=== PATIENT | male | born 1940 | race Caucasian/White ===

== ENCOUNTER → 2016-09-03 | Outpatient (CLI) | payer OTHER ==
--- NOTE | 2016-09-03 17:41 | CT ---
CT Scan of the Chest (Without Contrast) - High-Resolution Clinical Indications: Evaluate pulmonary fibrosis. Technique: Multidetector helical CT was performed from the superior thoracic inlet to the diaphragm. No intravenous contrast was given. The radiologist manipulated images at the computer workstation. The patient was scanned in the prone and supine positions. The patient was scanned in inspiration and expiration per the high-resolution CT chest protocol. Dose reduction techniques were utilized. Comparison: June 13, 2016. Findings: Apical fibrotic changes are again present but the alveolar component of the upper lobar co nsolidation has resolved significantly. There are still some patchy anterior areas of interstitial t hickening in the left upper lobe. There is some mild posterior consolidative or atelectatic change. The patchy alveolar right middle lobe and bibasilar consolidation are resolving significantly. Basi lar traction bronchiectasis is mild overall. 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 Limited examination of the upper abdomen is unremarkable. The bones exhibit moderate degenerative changes. There is a multilevel fusion in the lumbar spine. The aorta and pulmonary vasculature are unremarkable. There is dense coronary artery calcification. The heart size is normal. Low densities in the left upper kidney are consistent with cysts. Impression: Significant interval improvement in the alveolar versus reticulonodular opacities. This may have been result of either infectious consolidation or diffuse patchy failure on a background of moderate to severe interstitial lung disease.
== END ==
LOC: CIMAGING 14:11
PROVIDERS: ATTEND Internal Medicine Cardiovascular Disease
DX: J84.10 Pulmonary fibrosis, unspecified (principal)
CPT/HCPCS: 71250-PO

== ENCOUNTER 2016-09-18 07:28 | Day surgery (SDC) | payer OTHER ==
[2016-09-18] MEDS ORDERED: NS 1,000 ML IV ONE (07:29)
[2016-09-18] MEDS ORDERED: FAMOTIDINE 20 MG TAB PO ONE (07:29)
[2016-09-18] MEDS ORDERED: diphenhydrAMINE 25 MG CAP PO ONE ×2 (07:29→08:12)
[2016-09-18] MEDS ORDERED: ASPIRIN EC 325 MG TAB PO ONE (07:29)
[2016-09-18] MEDS ORDERED: DIAZEPAM 5 MG TAB PO ONE (07:29)
--- NOTE | 2016-09-18 07:51 | CPEKG ---
Heart Rate: 91 RR Interval: 659 P-R Interval: 184 QRSD Interval: 84 QT Interval: 372 QTC Interval: 458 P [place]: 10 QRS [place]: -18 T Wave [place]: 50 EKG Severity - ABNORMAL ECG - EKG Impression: SINUS RHYTHM EKG Impression: LVH WITH SECONDARY REPOLARIZATION ABNORMALITY Electronically Signed By: Yovani Kovacs 19-Sep-2016 08:51:57
[2016-09-18 08:09] LABS: % IMMATURE GRANULYOCYTES 0.6 % (0.0-1.1); ABSOLUTE IMMATURE GRANULOCYTES 0.05 10^3/uL (0.00-0.10); ADD DIFF? NO; ADD MORPH? NO; ADD SCAN? NO; ATYPICAL LYMPHOCYTE FLAG 0 (0-99); FRAGMENT RBC FLAG 0 (0-99); HEMATOCRIT 35.9 % (40.0-51.0); HEMOGLOBIN 11.8 g/dL (13.7-17.5); LEFT SHIFT FLG 0 (0-99); LIPEMIA HEMOLYSIS FLAG 80 (0-99); MEAN CELL HEMOGLOBIN 31.6 pg (27.9-34.1); MEAN CELL HEMOGLOBIN CONCENTR. 32.9 g/dL (32.4-36.7); MEAN CELL VOLUME 96.2 fL (81.5-99.8); MEAN PLATELET VOLUME 9.4 fL (8.7-11.7); PLATELET CLUMPS FLAG 0 (0-99); PLATELET COUNT 348 10^3/uL (150-400); RED BLOOD CELL COUNT 3.73 10^6/uL (4.40-6.38); RED CELL DISTRIBUTION WIDTH 13.8 % (11.5-15.2)
[2016-09-18] MEDS ORDERED: FAMOTIDINE 20 MG TAB ONE (08:12)
[2016-09-18] MEDS ORDERED: IOPAMIDOL (ISOVUE-370) 150 ML BTL IV ONE (08:18)
[2016-09-18] MEDS ORDERED: fentaNYL 100 MCG/2 ML INJ ONE (08:18)
[2016-09-18] MEDS ORDERED: LIDOCAINE 1% 30 ML SDV ONE (08:18)
[2016-09-18] MEDS ORDERED: MIDAZOLAM 2 MG/2 ML VIAL ONE (08:18)
[2016-09-18] MEDS ORDERED: VERAPAMIL 5 MG/2 ML VIAL ONE (08:18)
[2016-09-18] MEDS ORDERED: HEPARIN 10,000 UNIT/10 ML MDV ONE (08:18)
[2016-09-18 08:20] LABS: INR 0.99 (0.83-1.16)
[2016-09-18 08:33] LABS: ANION GAP 10 mEq/L (8-16); CALCIUM 9.4 mg/dL (8.5-10.4); CARBON DIOXIDE 24 mEq/l (22-31); CHLORIDE 108 mEq/L (97-110); CHOLESTEROL 155 mg/dL (140-220); CHOLESTEROL/HDL RATIO 2.87 RATIO (1.00-4.97); CREATININE 1.5 mg/dL (0.7-1.3); GLOMERULAR FILTRATION RATE 46; GLUCOSE 81 mg/dL (70-100); HIGH DENSITY LIPOPROTEIN 54 mg/dL (40-65); LDL/HDL RATIO 1.39 RATIO (1.00-3.64); LOW DENSITY LIPOPROTEIN 75 mg/dL (80-100); MAGNESIUM 1.8 mg/dL (1.6-2.3); NON-HIGH DENSITY LIPOPROTEIN 101 mg/dL (90-129); POTASSIUM 4.1 mEq/L (3.5-5.2); SODIUM 142 mEq/L (134-144); TRIGLYCERIDE 130 mg/dL (40-150); VERY LOW DENSITY LIPOPROTEINS 26 mg/dL (8-25)
--- NOTE | 2016-09-18 13:04 | CPIP ---
[f rep st] INVASIVE CARDIAC PROCEDURE DATE OF PROCEDURE: 09/18/2016 PROCEDURES: 1. Coronary angiography. 2. Right heart catheterization. INDICATIONS: 1. Known coronary artery disease. 2. Dyspnea on exertion concerning for an anginal equivalent. 3. History of cardiomyopathy. ACCESS: Patient was prepped and draped in a sterile fashion. 1% lidocaine was used to anesthetize t he right inguinal region. A 6-Filipino introducer sheath was placed in the right common femoral artery via modified Seldinger technique. A 7-Filipino introducer sheath was placed selectively into the [facility] t common femoral vein via modified Seldinger technique. CORONARY ANGIOGRAPHY: A 6-Filipino JL4 was advanced to the left main coronary artery and images obtain ed. The left main coronary artery bifurcated into an LAD and circumflex coronary arteries. The left main coronary artery appeared normal. The left anterior descending coronary artery was diffusely di seased. In the proximal segment, there was a segmental 40% stenosis present. In the midsegment, the re was a segmental 50% stenosis present and in the distal vessel there was a segmental 40% stenosis p resent. The first diagonal artery was a moderate-sized vessel. The first diagonal artery had an ost ial 50-60% stenosis present. The second diagonal artery is a small vessel that had a long segmental 70% stenosis present. The circumflex coronary artery was nondominant. The circumflex coronary arter y had a discrete 20% stenosis in the proximal segment. The second OM artery had a proximal 30% steno sis present. The third OM artery had a segmental 30-40% stenosis present. 6-Filipino JR4 was advanced to the right coronary artery and images obtained. The right coronary artery had a mid segmental 50% stenosis present. RIGHT HEART CATHETERIZATION: Right heart catheter was advanced to the right atrium and pressure obta ined. The right atrial pressure was 5 mmHg. The catheter was then advanced in the right ventricle a nd pressure obtained. The right ventricular pressure was 30/2 mmHg. the catheter was then advanced in the pulmonary artery position and pressure obtained. The pulmonary artery pressure was 26/12 mmHg. The catheter was then advanced into the wedge position and pressure obtained. The pulmonary capilla ry wedge pressure was 8 mmHg. Cardiac output was 5.12, cardiac index 2.91. COMPLICATIONS: None. CONCLUSIONS: 1. Moderate coronary artery disease involving predominantly branch vessels. 2. Normal pulmonary artery pressure with a mean pulmonary artery pressure of 17 mmHg. 3. Normal pulmonary capillary wedge pressure at 8 mmHg. 4. When compared to angiogram December of 2015, branch vessel disease appears to be slightly worse with p otential of vasospastic type component. 5. Recommend medical management. /[id number]/MODL
[2016-09-18] MEDS ORDERED: ACETAMINOPHEN 325 MG TAB ONE (15:53)
--- NOTE | 2016-09-18 17:05 | ECHO ---
[id number] + + [address] : : [place] [address] : : [phone] + + Adult Echocardiographic Report + ------+ :Name: TRENA PHILLIPS HStudy Date: 09/18/2016 12:22 PM : : Hospital Admission Number: [id number] Locatio n: CVC: :: 1940 Gender: Male Height: 67 in : :Age: 76 yrs Race: WH Weight: 145 lb : :Reason For Study: Eval LV Fx : : BSA: 1.8 meters 2 : :History: Post Cath : + ------+ MMode/2D Measurements & Calculations IVSd: 1.0 cm LVIDd: 4.2 cm FS: 20.1 % Ao root diam: LVPWd: 0.91 cm LVIDs: 3.3 cm EDV(Teich): 3.9 cm 78.2 ml ACS: 1.8 cm ESV(Teich): 45.7 ml EF(Teich): 41.6 % LVLd ap4: 7.0 cm SV(MOD-sp4): EDV(MOD-sp4): 27.0 ml 66.0 ml LVLs ap4: 6.5 cm ESV(MOD-sp4): 39.0 ml EF(MOD-sp4): 40.9 % Normal Measurement Values: + + :LVIDd (3.5-5.7cm) IVSd (0.6-1.1cm) LVPWd (0.6-1.1cm) Aortic Root (2.0-3.7cm)Left Atrium (1.5-4.0cm): :LV Vol(d) (76-115ml) LV Vol(s) (29-48ml) Ejec Fraction (50-65%)PV Ander (0.6- 1.2m/s) TV Ander (0.4-1.0m/s) : :MV E Ander (0.8-1.0m/s)MV A Ander (0.3-1.0m/s)LVOT Ander (0.7-1.2m/s) Asc Ao Ander ( 0.9-1.8m/s) : + + Doppler Measurements & Calculations MV E max ander: AI max ander: LV V1 max: MR max ander: 51.3 cm/sec 304.1 cm/sec 74.0 cm/sec 320.3 cm/sec MV A max ander: AI max P.0 mmHg LV V1 max PG: MR max P.8 cm/sec AI dec slope: 2.2 mmHg 41.0 mmHg MV E/A: 0.57 110.5 cm/sec2 AI P1/2t: 805.7 msec PA V2 max: TR max ander: 86.9 cm/sec 243.0 cm/sec PA max PG: TR max P.6 mmHg 3.0 mmHg RAP systole: 5.0 mmHg RVSP(TR): 28.6 mmHg Left Ventricle The left ventricle is normal in size. There is mild concentric left ventricular hypertrophy. Ejection Fraction = 50%. There is Doppler evidence for diastolic dysfunction. Right Ventricle The right ventricle is normal in size and function. Atria The left atrium is mildly dilated. Right atrial size is normal. Mitral Valve The mitral valve is normal in structure and function. There is no evidence of mitral valve prolapse. There is no mitral valve stenosis. There is mild mitral regurgitation. Tricuspid Valve There is trace to mild tricuspid regurgitation. Right ventricular systolic pressure is 28mmHg. Aortic Valve The aortic valve is trileaflet. There is no aortic stenosis. Mild aortic regurgitation. Pulmonic Valve The pulmonic valve is normal in structure and function. There is no pulmonic valvular regurgitation. Great Vessels The aortic root is normal size. Pericardium/Pleural There is no pericardial effusion. Conclusion A complete two-dimensional transthoracic echocardiogram was performed (2D, M-mode, Doppler and color flow Doppler). There is mild concentric left ventricular hypertrophy. There is Doppler evidence for diastolic dysfunction. The right ventricle is normal in size and function. The left atrium is mildly dilated. The mitral valve is normal in structure and function. There is mild mitral regurgitation. There is trace to mild tricuspid regurgitation. Right ventricular systolic pressure is 28mmHg. The aortic valve is trileaflet. Mild aortic regurgitation. The pulmonic valve is normal in structure and function. There is no pericardial effusion. Ejection Fraction = 50%. Compared with 01/16/2016, LVEF may be slightly better. Final Reading Physician: Dr Margaret Aguiar electronically signed on 09/18/2016 05:04 PM Ordering Physician: Tono Klein Performed By: Clint Patton, GHAZALACS
== END 2016-09-18 15:57 | disposition home or self-care (01) ==
LOC: FCATH 07:28
PROVIDERS: ATTEND Internal Medicine Cardiovascular Disease
PROC: 4A023N6 Measurement of Cardiac Sampling and Pressure, Right Heart, Percutaneous Approach (ICD-10-PCS; principal; 2016-09-18)
PROC: B2111ZZ Fluoroscopy of Multiple Coronary Arteries using Low Osmolar Contrast (ICD-10-PCS; principal; 2016-09-18)
DX: I25.10 Atherosclerotic heart disease of native coronary artery without angina pectoris (principal); R06.00 Dyspnea, unspecified; I50.9 Heart failure, unspecified; J98.4 Other disorders of lung; N18.9 Chronic kidney disease, unspecified
CPT/HCPCS: J1644; J2250; J3010; Q9967

== ENCOUNTER → 2017-01-15 | Outpatient (CLI) | payer OTHER | LOC: FIMAGING 10:45 | PROVIDERS: ATTEND Physician Assistant | DX: Z47.89 Encounter for other orthopedic aftercare (principal); Z98.1 Arthrodesis status ==

== ENCOUNTER → 2017-03-07 | Outpatient (CLI) | payer OTHER | LOC: BHFA 14:45 | PROVIDERS: ATTEND Internal Medicine Cardiovascular Disease | DX: I25.10 Atherosclerotic heart disease of native coronary artery without angina pectoris (principal); I48.91 Unspecified atrial fibrillation; R42 Dizziness and giddiness; N18.9 Chronic kidney disease, unspecified ==

== ENCOUNTER 2017-06-11 19:30 | Inpatient (IN) | payer OTHER ==
--- NOTE | 2017-06-11 19:40 | EDPHY ---
H & P Stated Complaint: AFIB/CP 11/02, 'DONT FEEL WELL', SAW DOCTOR TODAY, WAS TO COME IN EARLIER HPI/ROS: CHIEF COMPLAINT: Chest pain HISTORY OF PRESENT ILLNESS: The patient is an anticoagulated 77 y/o male with a cardiac disease history arriving with his complaining of left-sided chest pain today and fatigue for the last week. His medical history includes atrial fibrillation with RVR, CAD, hypertension, hyperlipidemia, and chronic kidney disease. He is not on rate-controlling medication for his atrial fibrillation currently. He's felt generally fatigued and weak over the last week, particularly when walking. He saw his PCP today and was directed to take extra metoprolol and go to the ED. The patient took 25mg metoprolol this morning and again this evening and then decided to come into the ED. He denies abdominal pain, nausea, vomiting, diaphoresis, dyspnea, fever. He's had associated loss of appetite and reports losing 5-8lbs over the last 2 weeks. He had a cardiac catheterization performed in August of 2016. REVIEW OF SYSTEMS: A ten point review of systems was performed and is negative with the exception of the items mentioned in the HPI. Past medical history: Atrial fibrillation with RVR - Eliquis, cardiomyopathy, CAD, hypertension, hyperlipidemia, anxiety, chronic kidney disease with baseline creatinine of 1.4, spinal stenosis and degenerative disc disease, GERD , gastric ulcer Past surgical history: neck fusion Family history: Father had TX age 54. Social history: at bedside. Nonsmoker. Snow Removal/Plowing: Dr. Armstrong. PCP: Dr. Ariza Prior medical records reviewed including admission 06/10/16 for dyspnea. General Appearance: Alert. Vital signs reviewed. Heart rate 125, blood pressure 129/84. Eyes: Pupils equal and round, no conjunctival injection, no discharge. Anicteric. ENT, Mouth: Mucous membranes are moist, no oropharyngeal erythema or edema. Neck: No lymphadenopathy, supple. No JVD. Respiratory: Lungs are clear to auscultation; no wheezes, rales, or rhonchi. Cardiovascular: Tachycardic, irregularly irregular rate and rhythm; no murmur, rub, or gallop. Gastrointestinal: Abdomen is soft and nontender, no masses or organomegaly, bowel sounds normal. Skin: Warm and dry, no rashes on exposed skin, normal color. Back: Nontender to palpation over the thoracolumbar spine. No CVAT. Extremities: No lower extremity edema, no calf tenderness or swelling. Neurological: Alert and oriented. Moving all four extremities easily and equally. Psychiatric: Normal affect. - Personal History Current Tetanus/Diphtheria Vaccine: Yes Tetanus Vaccine Date: 5 YEARS AGO - Medical/Surgical History Hx Asthma: No Hx Chronic Respiratory Disease: No Hx Diabetes: No Hx Cardiac Disease: Yes Hx Renal Disease: No Hx Cirrhosis: No Hx Alcoholism: No Hx HIV/AIDS: No Hx Splenectomy or Spleen Trauma: No Other PMH: htn, high cholesterol, rotator cuff [id number] cannot raise r arm above head. r knee replacement, ANXIETY, 2 neck surgeries, 2 back surgeries - Social History Smoking Status: Former smoker Constitutional: Initial Vital Signs Heart Rate 125 H 06/11/17 19:35 Respiratory Rate 18 06/11/17 19:35 Blood Pressure 129/84 H 06/11/17 19:35 O2 Sat (%) 96 06/11/17 19:35 O2 Delivery Mode Nasal Cannula O2 (L/minute) 3 Allergies/Adverse Reactions: amiodarone Allergy (Severe, Verified 06/12/17 07:27) Swelling/neck,face,throat hydrocodone bitartrate [From [facility]] Allergy (Verified 06/11/17 19:48) GETS AGITATED oxycodone HCl [From Percocet] Allergy (Verified 06/11/17 19:48) GETS AGITATED Home Medications: Medication Instructions Recorded Multivitamins [Multivitamin (*)] 1 each PO HS 06/13/16 Atorvastatin Calcium [Lipitor 40 40 mg PO DAILY #0 tab 06/15/16 mg (*)] Acetaminophen [Tylenol 325mg (*)] 650 mg PO DAILY PRN 09/18/16 Cholecalciferol Vit D3 [Vitamin D3 2,000 units PO DAILY 09/18/16 2000 units tab (OTC)] Omeprazole [Prilosec 20 mg] 40 mg PO DAILY 09/18/16 Apixaban [Eliquis] 2.5 mg PO BID 06/11/17 Cyanocobalamin [Vitamin B12 (*)] 1,000 mcg PO DAILY 06/11/17 LORazepam [Ativan (*)] 0.5 mg PO Q8H PRN 06/11/17 Zolpidem Tartrate [Ambien 5MG (*)] 5 mg PO HS PRN 06/11/17 Benzonatate [Tessalon Pearles] 100 - 200 mg PO TID PRN #40 cap 06/15/17 Carvedilol [Coreg (*)] 9.375 mg PO BIDMEAL #90 tab 06/15/17 Furosemide [Lasix 40 MG (*)] 40 mg PO DAILY #30 tab 06/15/17 Potassium Cl [Klor-Con 10 meq (RX)] 10 meq PO DAILY #30 tab 06/15/17 Ramipril [Altace 5mg (*)] 5 mg PO DAILY #30 cap 06/15/17 predniSONE 20 mg PO DAILY #4 tablet 06/15/17 Medical Decision Making - Diagnostics EKG Interpretation: 12 lead EKG is interpreted in Trace master View by emergency department physician. EKG shows atrial fibrillation with a rate of 117. Imaging: I viewed and interpreted images myself ED Course/Re-evaluation: This is an anticoagulated 77 y/o male with a history of atrial fibrillation and CAD who presents with a 1-week history of fatigue and a 1-day history of chest pain. He was evaluated by his PCP this morning and found to be in afib. His PCP directed him to take metoprolol and go to the ED, though the patient waited until this evening to come in. He has an irregularly irregular heart rate on exam, but otherwise is well-appearing. Plan for IV, labs, EKG, and chest x-ray. Re-evaluated at 8:40 p.m.. He has received 5 mg of metoprolol IV. His heart rate is now around 100. He is not experiencing chest pain. He continues to be in atrial fibrillation. Chest x-ray shows cardiomegaly. Slight elevation of his troponin at 0.039. I am recommending hospitalization for continued rate control and cycling of troponins. 2123: Spoke with hospitalist service. Dr. Ortega accepts admission. Differential Diagnosis: Chest pain including but not limited to myocardial ischemia, pulmonary embolus, chest wall pain, pleural inflammation and pulmonary infectious causes. - Data Points Laboratory Results: Laboratory Results 06/11/17 19:50 06/12/17 05:47 Medications Given: Discontinued Medications Acetaminophen (Tylenol) 650 mg PO DAILY PRN PRN Reason: Pain, Mild/Fever, Can Take PO Stop: 12/08/17 21:57 Last Admin: 06/13/17 08:35 Dose: 650 mg Apixaban (Eliquis) 2.5 mg PO BID [facility] Stop: 12/09/17 00:26 Last Admin: 06/12/17 09:05 Dose: Not Given Apixaban (Eliquis) 5 mg PO BID YANNICK Stop: 12/10/17 09:44 Last Admin: 06/15/17 09:06 Dose: 5 mg Atorvastatin Calcium (Lipitor) 40 mg PO DAILY YANNICK Stop: 12/09/17 08:59 Last Admin: 06/15/17 09:08 Dose: 40 mg Bacitracin (Bacitracin 1000 Ml Irrigation) 50,000 units IRR ONCALL ONE Stop: 06/12/17 10:08 Last Admin: 06/12/17 19:08 Dose: Not Given Benzocaine (Hurricaine [place]) 1 each MM ONCALL ONE Stop: 06/12/17 10:15 Last Admin: 06/12/17 19:08 Dose: Not Given Benzonatate (Tessalon Pearles) 100 mg PO TID PRN PRN Reason: Cough, Mild Stop: 12/12/17 00:11 Last Admin: 06/15/17 00:45 Dose: 100 mg Carvedilol (Coreg) 6.25 mg PO BIDMEAL [facility] Stop: 12/10/17 07:59 Last Admin: 06/15/17 09:45 Dose: Not Given Carvedilol (Coreg) 9.375 mg PO BIDMEAL [facility] Stop: 12/12/17 08:29 Last Admin: 06/15/17 09:08 Dose: 9.375 mg Cholecalciferol (Vitamin D) 2,000 units PO DAILY YANNICK Stop: 12/09/17 08:59 Last Admin: 06/15/17 09:08 Dose: 2,000 units Diazepam (Valium) 5 mg PO ONCALL ONE Stop: 06/12/17 10:08 Last Admin: 06/12/17 19:08 Dose: Not Given Diphenhydramine HCl (Benadryl) 25 mg PO ONCALL ONE Stop: 06/12/17 10:08 Last Admin: 06/12/17 19:08 Dose: Not Given Furosemide (Lasix Injection) 20 mg IVP ONCE ONE Stop: 06/12/17 21:01 Last Admin: 06/12/17 21:14 Dose: 20 mg Furosemide (Lasix Injection) 20 mg IVP ONCE ONE Stop: 06/14/17 09:40 Last Admin: 06/14/17 10:08 Dose: 20 mg Furosemide (Lasix) 40 mg PO DAILY YANNICK Stop: 12/12/17 08:59 Last Admin: 06/15/17 09:07 Dose: 40 mg Guaifenesin (Robitussin Oral Liquid 200mg/10ml) 200 mg PO Q4HRS PRN PRN Reason: Cough, Mild Stop: 12/12/17 00:11 Last Admin: 06/15/17 00:45 Dose: 200 mg Hydralazine HCl (Apresoline) 10 mg IVP Q2HRS PRN PRN Reason: SBP Greater Than Stop: 12/10/17 02:15 Last Admin: 06/13/17 05:04 Dose: 10 mg Sodium Chloride (Ns) 1,000 mls @ 75 mls/hr IV CONT YANNICK Stop: 12/09/17 06:44 Last Admin: 06/12/17 07:21 Dose: 1,000 mls Sodium Chloride (Ns) 500 mls @ 1,500 mls/hr IV ONCE ONE Stop: 06/12/17 06:58 Last Admin: 06/12/17 06:45 Dose: 500 mls Sodium Chloride (Ns) 1,000 mls @ 0 mls/hr IV ONCALL ONE PRN Reason: As Directed Stop: 06/12/17 10:08 Last Admin: 06/12/17 19:08 Dose: Not Given Cefazolin Sodium 2 gm/ (Dextrose) 100 mls @ 200 mls/hr IV ONCALL ONE Stop: 06/12/17 10:59 Last Admin: 06/12/17 19:08 Dose: Not Given Magnesium Sulfate (Magnesium Sulf 2 Gm (Premix)) 50 mls @ 50 mls/hr IV ONCE ONE Stop: 06/15/17 11:19 Last Admin: 06/15/17 11:36 Dose: 50 mls Lorazepam (Ativan) 0.5 mg PO Q8H PRN PRN Reason: Anxiety Stop: 12/08/17 21:57 Last Admin: 06/12/17 20:50 Dose: 0.5 mg Metoprolol Tartrate (Lopressor Injection) 5 mg IVP EDNOW ONE Stop: 06/11/17 20:11 Last Admin: 06/11/17 20:25 Dose: 5 mg Metoprolol Tartrate (Lopressor) 50 mg PO BID YANNICK Stop: 12/08/17 21:59 Last Admin: 06/12/17 00:14 Dose: 50 mg Metoprolol Tartrate (Lopressor Injection) 5 mg IVP ONCE ONE Stop: 06/11/17 22:53 Last Admin: 06/11/17 22:57 Dose: 5 mg Multivitamins (Tab-A-Imelda) 1 each PO HS YANNICK Stop: 12/09/17 20:59 Last Admin: 06/14/17 21:35 Dose: 1 each Pantoprazole Sodium (Protonix) 40 mg PO DAILY YANNICK Stop: 12/09/17 08:59 Last Admin: 06/15/17 09:08 Dose: 40 mg Potassium Chloride (Klor-Con) 10 meq PO ONCE ONE Stop: 06/14/17 09:41 Last Admin: 06/14/17 10:07 Dose: 10 meq Potassium Chloride (Klor-Con) 10 meq PO DAILY YANNICK Stop: 12/12/17 08:59 Last Admin: 06/15/17 09:07 Dose: 10 meq Prednisone (Prednisone) 20 mg PO ONCE ONE Stop: 06/15/17 13:14 Last Admin: 06/15/17 15:47 Dose: Not Given Ramipril (Altace) 2.5 mg PO DAILY YANNICK Stop: 12/10/17 08:59 Last Admin: 06/14/17 08:14 Dose: 2.5 mg Ramipril (Altace) 5 mg PO DAILY YANNICK Stop: 12/11/17 08:59 Last Admin: 06/14/17 10:29 Dose: Not Given Ramipril (Altace) 2.5 mg PO ONCE ONE Stop: 06/14/17 09:46 Last Admin: 06/14/17 10:07 Dose: 2.5 mg Ramipril (Altace) 5 mg PO DAILY YANNICK Stop: 12/12/17 08:59 Last Admin: 06/15/17 09:06 Dose: 5 mg Vitamin B Complex (Vitamin B12) 1,000 mcg PO DAILY YANNICK Stop: 12/09/17 08:59 Last Admin: 06/15/17 09:07 Dose: 1,000 mcg Zolpidem Tartrate (Ambien) 5 mg PO HS PRN PRN Reason: Sleep/Insomnia Stop: 12/08/17 21:57 Last Admin: 06/13/17 21:48 Dose: 5 mg Departure - Departure Disposition: [facility] Inpatient Acute Clinical Impression: Elevated troponin Atrial fibrillation Qualifiers: Atrial fibrillation type: paroxysmal Qualified Code(s): I48.0 - Paroxysmal atrial fibrillation Fatigue Qualifiers: Fatigue type: other Qualified Code(s): R53.83 - Other fatigue Condition: Fair Report Scribed for: Leonie Santana Report Scribed by: Radha Soni Date of Report: 06/11/17 Time of Report: 19:49 Physician Review and Approval Statement: 06/11/17 19:40 Portions of this note were transcribed by the vp medical. I, Dr. Leonie Santana, personally performed the history, physical exam, and medical decision- making; and confirmed the accuracy of the information in the transcribed note.
--- NOTE | 2017-06-11 19:52 | CPEKG ---
Heart Rate: 117 RR Interval: 513 QRSD Interval: 78 QT Interval: 328 QTC Interval: 458 QRS [place]: -5 T Wave [place]: 96 EKG Severity - ABNORMAL ECG - EKG Impression: ATRIAL FIBRILLATION, V-RATE 68-150 EKG Impression: BORDERLINE T ABNORMALITIES, LATERAL LEADS Electronically Signed By: Leonie Santana 11-Jun-2017 23:03:11
[2017-06-11] MEDS ORDERED: METOPROLOL TARTRATE 5 MG/5 ML INJ IVP ONE ×2 (20:10→22:52)
[2017-06-11 20:13] LABS: % IMMATURE GRANULYOCYTES 0.2 % (0.0-1.1); ABSOLUTE IMMATURE GRANULOCYTES 0.01 10^3/uL (0.00-0.10); ADD DIFF? NO; ADD MORPH? NO; ADD SCAN? NO; ATYPICAL LYMPHOCYTE FLAG 10 (0-99); FRAGMENT RBC FLAG 0 (0-99); HEMATOCRIT 40.9 % (40.0-51.0); HEMOGLOBIN 14.1 g/dL (13.7-17.5); LEFT SHIFT FLG 0 (0-99); LIPEMIA HEMOLYSIS FLAG 90 (0-99); MEAN CELL HEMOGLOBIN 33.9 pg (27.9-34.1); MEAN CELL HEMOGLOBIN CONCENTR. 34.5 g/dL (32.4-36.7); MEAN CELL VOLUME 98.3 fL (81.5-99.8); MEAN PLATELET VOLUME 10.5 fL (8.7-11.7); PLATELET CLUMPS FLAG 20 (0-99); PLATELET COUNT 250 10^3/uL (150-400); RED BLOOD CELL COUNT 4.16 10^6/uL (4.40-6.38); RED CELL DISTRIBUTION WIDTH 13.5 % (11.5-15.2)
[2017-06-11 20:35] LABS: ANION GAP 12 mEq/L (8-16); CALCIUM 9.8 mg/dL (8.5-10.4); CARBON DIOXIDE 20 mEq/l (22-31); CHLORIDE 108 mEq/L (97-110); CREATININE 1.8 mg/dL (0.7-1.3); GLOMERULAR FILTRATION RATE 37; GLUCOSE 106 mg/dL (70-100); SODIUM 140 mEq/L (134-144)
[2017-06-11 20:47] LABS: TROPONIN I 0.039 ng/mL (0.000-0.034)
[2017-06-11] MEDS ORDERED: METOPROLOL TARTRATE 50 MG TAB PO SCH (22:00)
--- NOTE | 2017-06-11 22:22 | GHP ---
[f rep st] HISTORY AND PHYSICAL DATE OF ADMISSION: 06/11/2017 CHIEF COMPLAINT: Chest pain and tachycardia. HISTORY OF PRESENT ILLNESS: This is a 77-year-old male with a history of chronic systolic congestive heart failure [facility] class 3, coronary artery disease, and persistent atrial fibrillation wh o presents to the emergency department with off and on chest pain for the past 1-1/2 weeks. The amilcar ent saw his primary care provider, Dr. Ariza this morning where his heart rate was 140 and he was instructed to go to the emergency department for further evaluation. The patient tells me that he h as been having chest pain off and on. The last episode was described as a 7/10 chest pressure at 8:0 0 this morning that lasted for 3 for minutes and self-resolved. He had a 2nd episode of less severe chest pain this afternoon. He says he has been compliant with his home medications. PAST MEDICAL HISTORY: 1. Coronary artery disease. Most recent cardiac catheterization was on September 18, 2016, where he w as found to have moderate coronary artery disease involving predominantly the branch vessels. No int ervention was recommended at that time, other than medical management. 2. 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 3. Persistent atrial fibrillation. 4. Stage III chronic kidney disease. 5. Hypertension. 6. Hyperlipidemia. 7. Anxiety. 8. Spinal stenosis. 9. Gastroesophageal reflux disease. 10. Gastric ulcer. 11. Cardiomyopathy with ejection fraction of 40% in December of 2015. Most recent echocardiogram done in August of 2016 with an ejection fraction of 50%. PAST SURGICAL HISTORY: Cervical fusion C3-C4, right knee replacement in 2010, lumbar spinal fusion L 3 through L5, right rotator cuff repair x2, tonsil and adenoidectomy. HOME MEDICATIONS: Reviewed. Refer to [employer] for details. ALLERGIES: Oxycodone, hydrocodone, ? amiodarone given hospitalization for amiodarone toxicity, [facility] I did not confirm this with the patient. SOCIAL HISTORY: Is a former smoker. He is . He denies illicit drug use. FAMILY HISTORY: Reviewed and noncontributory. REVIEW OF SYSTEMS: Comprehensive 10-point review of systems was done and is negative, except for as mentioned in the HPI and below. GI: The patient denies any nausea or vomiting. He denies any heart burn. He has been having some abdominal cramping over the past few days which has been associated wi th decreased appetite. PHYSICAL EXAM: VITAL SIGNS: Blood pressure 132/110, heart rate 104, respiratory rate 18, O2 saturat ion 94% on room air. Temperature afebrile. GENERAL: No acute distress. HEAD: Normocephalic, atra umatic. EYES: PERRLA. Sclerae anicteric. MOUTH: Moist mucous membranes. NECK: Supple. No lymp hadenopathy. CARDIOVASCULAR: Tachycardic, irregularly irregular. No JVD. No lower extremity edema . PULMONARY: Lungs are clear. No wheezes, rales, or rhonchi. ABDOMEN: Soft, nontender, nondisten ded. No guarding or rebound tenderness. Normoactive bowel sounds. EXTREMITIES: No clubbing or cya nosis. NEURO: Cranial nerves 2-12 grossly intact. No focal motor or sensory deficits. SKIN: Merle r no rashes. DIAGNOSTICS: Chest x-ray, which I visualized and personally interpreted, shows does mild cardiomegal y but no signs of acute congestive heart failure. EKG, which I visualized and personally interpreted , shows atrial fibrillation. Rate 117 beats per minute, with no acute ischemic changes. WBC is 5.8, hemoglobin 14.1, hematocrit 40.9, platelets 250. Sodium 140, potassium 5, chloride 108, CO2 20, BUN 26, creatinine 1.8, glucose 106, troponin indeterminate at 0.039. ASSESSMENT AND PLAN: This is a 77-year-old male with known coronary artery disease, presenting with 1. Chest pain and indeterminate troponin. Doubt acute coronary syndrome however the patient is at r isk. Plan: The patient will be placed on observation where we will cycle his troponins and consult Cardiology. Once again, the patient did have a cardiac cath in August of 2016. 2. Atrial fibrillation with poor rate control, likely contributing the patient's symptoms. Plan: We will increase the patient's metoprolol from 25 mg twice daily to 50 mg twice daily. Eliquis will be continued. If his heart rate continues to be above 100, we will consider adding a 2nd agent such as diltiazem. We will also check a TSH. 3. Chronic kidney disease. Stable. Plan: Avoid nephrotoxins and monitor. CODE STATUS: The patient requests to be full code status. /[id number]/MODL
[2017-06-11 22:53] LABS: MAGNESIUM 1.7 mg/dL (1.6-2.3)
[2017-06-11] MEDS ORDERED: METOPROLOL TARTRATE 5 MG/5 ML INJ ONE (22:56)
[2017-06-12] MEDS: ZOLPIDEM TARTRATE 5 MG TAB PO PRN (00:14)
[2017-06-12] MEDS: APIXABAN 2.5 MG TAB PO SCH ×2 (00:47→09:05)
[2017-06-12] MEDS: LORazepam 0.5 MG TAB PO PRN ×3 (04:10→20:50)
[2017-06-12 06:22] LABS: TROPONIN I 0.023 ng/mL (0.000-0.034)
[2017-06-12] MEDS ORDERED: NS 500 ML IV ONE ×2 (06:38→06:39)
--- NOTE | 2017-06-12 06:38 | HOSPPROG ---
Hospitalist Progress Note Assessment/Plan: Hospitalist Night Float Note Arrived to bedside after Noni Courtney called at patient room. RN was at bedside when patient c/o lightheadedness and subsequent syncopal episode while laying in bed. Patient was noted to be pulseless and unresponsive. Telemetry notes a 10 second pause with surrounding 2-3 second pauses. Patient had spontaneous return or pulses and consciousness. Patient admitted with c/o chest pain and afib RVR HR 140s. Patient was continued on metoprolol with increased dosage from 25mg bid to 50mg bid. At time of interview patient continued to feel a little lightheaded and uneasy with chest tightness with inspiration. VS reviewed. BP noted to be elevated with HR 120s. Gen - NAD. patient lays in bed. alert and interactive but pale and fatigued appearing. CV - tachy, slightly distant heart sounds. no murmur. Resp - CTA-B. unlabored breathing. GI - soft abdomen. nondistended. NTTP. Ext - no c/c/e. Neuro - nonfocal. moves all extremities. Psych - pt expressing concern but not anxious. pleasant and appropriate. AAOx3. Labs and tele reviewed. Plan - Pauses - holding beta doug. no additional anti-arrhythmics after discussion with cardiology. permissive tachycardia at this time. - atrial fib rvr - holding tx for rate control. pt on eliquis already. - diastolic and systolic chf chronic and compensated - monitor on tele. previous echo showed improvement in LVEF 40% to 50%. - benign essential HTN - holding antihypertensives at this time pending cardiology recommendations. - HLD - cont statin - CKD stage 3 - stable, avoid nephrotoxine. - anxiety -ativan prn - gerd - on protonix. 35 minutes critical care time at bedside and in discussion with patient and cardiology. Objective: Vital Signs Temp Pulse Resp BP Pulse Ox 36.7 C 127 H 18 142/109 H 92 06/12/17 04:00 06/12/17 04:00 06/12/17 04:00 06/12/17 04:00 06/12/17 04:00 06/11/17 06/12/17 06/13/17 05:59 05:59 05:59 Intake Total 320 Output Total 200 Balance 120 ICD10 Worksheet Patient Problems: Problems Problem Status Onset Atrial fibrillation Acute Elevated troponin Acute Fatigue Acute Chest pain Acute Hypoxia Acute Pulmonary infiltrate present on computed tomography Acute
[2017-06-12] MEDS ORDERED: NS 1,000 ML IV SCH (06:45)
[2017-06-12 07:34] LABS: ANION GAP 14 mEq/L (8-16); CALCIUM 9.6 mg/dL (8.5-10.4); CARBON DIOXIDE 19 mEq/l (22-31); CHLORIDE 109 mEq/L (97-110); CREATININE 1.7 mg/dL (0.7-1.3); GLOMERULAR FILTRATION RATE 39; GLUCOSE 86 mg/dL (70-100); POTASSIUM 4.8 mEq/L (3.5-5.2); SODIUM 142 mEq/L (134-144)
--- NOTE | 2017-06-12 08:35 | HOSPPROG ---
Hospitalist Progress Note Assessment/Plan: #Sinus pause: received 100mg oral BB, plus 10mg IV. Cardiology to place pacemaker today #Permanent atrial fib: increase to 5mg BID, cardioversion planned #CAD: moderate disease on cath 09/11. Lexiscan when more clinically stable. Statin #Cardiomyopathy: likely to due to a fib. Will resume BB once pacer in. Restart ACEI when clinically stable #DVT ppx: Eliquis #Disp: warrants inpatient admission with sinus pause requiring pacer, cardioversion and stress testing. Critical care time spent: 45 min reviewing records/medications, evaluating pt and d/w Cardiology Subjective: nauseated, dizziness and chest pressure Objective: Vital Signs Temp Pulse Resp BP Pulse Ox 36.3 C 118 H 26 H 146/110 H 96 06/12/17 07:40 06/12/17 07:40 06/12/17 07:40 06/12/17 07:40 06/12/17 07:40 Laboratory Results 06/12/17 05:47 06/11/17 06/12/17 06/13/17 05:59 05:59 05:59 Intake Total 320 Output Total 200 Balance 120 - Physical Exam Constitutional: uncomfortable Eyes: PERRL Ears, Nose, Mouth, Throat: moist mucous membranes Cardiovascular: irregularly irregular, tachycardia Respiratory: no respiratory distress Gastrointestinal: normoactive bowel sounds Genitourinary: no bladder fullness Skin: warm Musculoskeletal: full muscle strength Neurologic: AAOx3, CN II-XII Intact Psychiatric: flat affect ICD10 Worksheet Patient Problems: Problems Problem Status Onset Atrial fibrillation Acute Chest pain Acute Hypoxia Acute Pulmonary infiltrate present on computed tomography Acute Fatigue Acute Elevated troponin Acute
[2017-06-12] MEDS ORDERED: RAMIPRIL 2.5 MG CAP PO SCH (09:00)
[2017-06-12] MEDS ORDERED: APIXABAN 2.5 MG TAB PO SCH (09:00)
[2017-06-12] MEDS: ATORVASTATIN CALCIUM 40 MG TAB PO SCH (09:10)
[2017-06-12] MEDS: CYANO/VITAMIN B12 1000 MCG TAB PO SCH (09:10)
[2017-06-12] MEDS: CHOLECALCIFEROL VIT D3 2,000 UNITS TAB/CAP PO SCH (09:10)
[2017-06-12] MEDS: PANTOPRAZOLE SODIUM 40 MG TAB PO SCH (09:11)
[2017-06-12] MEDS ORDERED: BACITRACIN IRRIGATION/NS 50,000 UNITS/1,000 ML BTL IRR ONE (10:07)
[2017-06-12] MEDS ORDERED: NS 1,000 ML IV ONE (10:07)
[2017-06-12] MEDS ORDERED: diphenhydrAMINE 25 MG CAP PO ONE (10:07)
[2017-06-12] MEDS ORDERED: DIAZEPAM 5 MG TAB PO ONE (10:07)
[2017-06-12] MEDS ORDERED: ceFAZolin 2 GM/DEXTROSE 100 ML IV ONE (10:07)
[2017-06-12] MEDS ORDERED: BENZOCAINE UNIT DOSE SPRAY HURRICAINE MM ONE (10:14)
[2017-06-12] MEDS ORDERED: ceFAZolin 2 GM in D5W 100 ML IV ONE (10:30)
[2017-06-12 12:06] LABS: INR 1.47 (0.83-1.16); PROTIME(PATIENT) 17.8 SEC (12.0-15.0)
--- NOTE | 2017-06-12 13:45 | GCON ---
[f rep st] CONSULTATION CARDIOLOGY CONSULTATION INDICATION FOR CARDIOLOGY CONSULTATION: Atrial fibrillation with rapid ventricular response, 12 second asystole pause. BRIEF HISTORY OF PRESENT ILLNESS: The patient is a 77-year-old male, who is known to our practice, he has significant past history that includes coronary artery disease, moderate multi-vessel disease based off cardiac catheterization September 18, 2016, paroxysmal atrial fibrillation, for which he had been on amiodarone, with questionable pulmonary fibrosis secondary to amiodarone, which had improved with discontinuation, chronic renal insufficiency with baseline creatinine between 1.7 and 1.8, hyperlipidemia, hypertension. Patient reporting about 2 weeks ago, of feeling heaviness, fatigue in his legs, finding that he is having less stamina, and decreased fatigue. He does report occasional episode of lightheadedness with positional changes, but no syncopal events. Reporting also occasional spontaneous episode of midsternal chest pressure, coming on once or twice a day, lasting for approximately 10-15 minutes , and dissipating. Denying any associated symptoms of shortness of breath, nausea, or diaphoresis. He also reports ongoing episodes of nausea, which he has reported poor appetite over the last 2 weeks, and causing a mild weight loss. Due to these symptoms, he felt that it would be important for him to be further evaluated, seeing Dr. Ariza, his PCP, yesterday. Upon examination, it was found that his heart rate was fairly significantly fast, he was found to be in atrial fibrillation. With his symptoms, Dr. Ariza recommended that he go to the emergency department for further evaluations. Dr. Ariza also prescribed him to start on metoprolol tartrate, which patient reports he had taken 25 mg yesterday morning. He waxed and waned deciding if he actually really wanted to go to the emergency department for further evaluation, feeling that his symptoms were not significantly worse, but finally decided to go in, and he was seen around 7:30 last night. Upon arrival, electrocardiogram was done, which showed atrial fibrillation with RVR with rates between 120-140, nonspecific T-wave abnormalities. Chest x-ray was done that showed mild cardiomegaly, but no acute cardiopulmonary process. Initial laboratory studies drawn did note mild elevated troponin of 0.039. Due to his elevated rate, emergency department did give the patient 2 doses of IV metoprolol tartrate, for a total of 10 mg. With no significant decrease in heart rate, he was given another dose of metoprolol tartrate orally of 50 mg. He was transferred up to the telemetry unit. The patient reported no further episodes of chest pain, but ongoing fatigue and weakness on admission. Since that night, once arrival in the PCU, he did have cycled troponins post Emergency Department, which were all negative. Unfortunately, at 5:25 a.m., he did have a run of 12 seconds asystole on monitor, reporting that he did pass out briefly, though awoke. At that point, he was transferred to the intensive care unit. His metoprolol tartrate had been discontinued. Since being in ICU, he has remained in atrial fibrillation with RVR. At the time of my examination, he continues to report mild fatigue, but reports no further episodes of chest pressure; he does report lightheadedness when he sits up quickly. He reports no recent fevers, chills or night sweats. Reports no orthopnea, PND, edema, near-syncope, or syncopal events prior to this hospitalization. Denies any symptoms suggestive of TIA or CVA. Reports no bleeding issues, he is currently on Eliquis for anticoagulation. PAST MEDICAL HISTORY: 1. Coronary artery disease, most recent cardiac catheterization was in September 18, 2016, in which it was found that he had moderate CAD. But, nothing flow limiting or that could be intervened on. 2. Paroxysmal atrial fibrillation, with past history of amiodarone toxicity. 3. 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 4. Chronic renal insufficiency with baseline creatinine around 1.8. 5. Hypertension. 6. Hyperlipidemia. 7. Spinal stenosis. 8. Gastroesophageal reflux disease. 9. Gastric ulcers. 10. Prostate cancer. 11. Past history of cardiomyopathy with ejection fraction of 40% in December of 2015 , which improved with medical therapy, most recent echocardiogram done in September 182016 showing EF of 50%. PAST SURGICAL HISTORY: 1. Includes cervical fusion of C3 and C4, right knee replacement in 2010, lumbar spine fusion L3 through L5, right rotator cuff repair x2. 2. Tonsils and adenoid removal. SOCIAL HISTORY: He is a former smoker who has quit multiple years ago, he is . He reports occasional alcohol use. He has 2 children. Denies any illicit drug use. ALLERGIES: Patient has listed allergies of amiodarone, [place] and Percocet. MEDICATIONS: At home include Ambien 5 mg p.o. at bedtime as needed, Ativan 0.5 mg p.o. q.8 hours as needed, ramipril 2.5 mg p.o. daily, Tylenol 650 mg p.o. daily as needed, omeprazole 40 mg p.o. daily, multivitamin 1 tablet p.o. at bedtime., vitamin D 2000 units p.o. daily, atorvastatin 40 mg p.o. daily, Eliquis 2.5 mg p.o. twice daily, Amlodipine 1.25 mg p.o. at bedtime, and vitamin B12 1000 mg p.o. daily. Recently with 1 dose started yesterday morning of metoprolol tartrate 25 mg p.o. twice daily. REVIEW OF SYSTEMS: A 10-point review of systems done on this patient all negative except as mentioned above. PHYSICAL EXAMINATION: GENERAL APPEARANCE: Thin, well-groomed, male. He is alert and oriented to person, place, time, situation. Appears to be in no acute distress at this time. VITAL SIGNS: Current vital signs are blood pressure 146/100, heart rate is 122 atrial fibrillation with rapid ventricular response on monitor, respirations are 20, saturating 96% on 3 L nasal cannula. Temperature 36.3 degrees Celsius. HEENT: Head is normocephalic. Lips and tongue are pink and moist, with no signs of cyanosis. Conjunctivae pink. NECK : Trachea is midline, +2 carotid pulses bilateral. No auscultated bruits, jugular vein elevation to 4-5 cm above sternal notch at a 45 degree angle. RESPIRATORY: Lungs diminished in bases bilateral. No rhonchi, rales or wheezing noted. No accessary muscle use, no intercostal muscle retraction noted. CARDIAC: Tachycardic rate, regular rhythm, S1, S2, a 1/6 systolic murmur noted along the left sternal border. ABDOMEN: Soft, nontender, bowel sounds x4 quadrants, no organomegaly, no palpable masses. SKIN: [place], warm, dry. EXTREMITIES: No cyanosis, no clubbing, no peripheral edema. VASCULAR: + 2 carotids bilateral, +2 radials bilateral, +1 dorsal pedal and posterior tibial pulses bilateral. LABORATORY STUDIES: Laboratory studies drawn on admission show WBC of 5.84, hemoglobin of 14.1, hematocrit 40.9, platelet count 250. The patient noted to have a TSH level of 2.42 and initial troponin of 0.039. This morning's lab showed sodium is 142, potassium 4.8, chloride 109, CO2 19, BUN 26, creatinine 1.7, glucose 86, calcium 9.6. The patient has had 2 repeated troponins since emergency department visit, 2nd 1 was 0.028, and this morning was 0.023. STUDIES: Electrocardiogram done in the emergency department showed atrial fibrillation with RVR, borderline T-wave abnormalities in lateral leads. Chest x-ray as mentioned above. Continuous cardiac monitoring showing, at 5:25 a.m., a 12 second run of asystole. Cardiac catheterization done September 18, 2016 showing moderate nonobstructive CAD, right heart catheterization noting RA pressure of 5, PA of 26/12, wedge pressure of 8, cardiac output of 5.1, index of 2.9. The patient's most recent echocardiogram done September 18, 2016 showing LVEF 50% with mild concentric LVH, LA mildly dilated, mild MR, RVSP of 28 mmHg, mild AI. ASSESSMENT AND PLAN: 1. Twelve second run of asystole: This happened with patient in atrial fibrillation, he was noted to have beta blockers 6 hours prior to this. I have reviewed with Dr. Edwards of Electrophysiology Services, who feels that despite recent AV minal agent, this is concerning, especially with the length of the pause, and has recommended, especially also associated with syncopal event, that the patient should have permanent pacemaker implantation done. This was explained to both the patient and his , they are in agreement, and this will be scheduled for later on this afternoon to be performed by Dr. Edwards in the Electrophysiology Lab. 2. Persistent atrial fibrillation: Poorly rate controlled, AV nodals have been discontinued due to recent 12 second pause, the patient reports he has been on. The patient probably has been in this for at least probably for 2 weeks, with little onset of symptoms. The patient had been on amiodarone in the past, but noted to have pulmonary fibrosis due to this, which is resolving. At this time, we will continue him on continuous cardiac monitoring, hesitant to cardiovert him until pacemaker implantation is done, due to potential pausing with conversion. The patient is only on 2.5 mg of Eliquis, by recommendations, he should be on 5 mg twice daily. We will plan for him to have a DEMI done prior to his pacemaker implantation, and post procedure we will have him undergo cardioversion, at that time when deemed safe we will restart him back on anticoagulation of Eliquis, at 5 mg p.o. twice daily. We may also consider restarting him on beta-blockers at that time after pacemaker implantation, or consideration of starting him on another antiarrhythmic. 3. Chest pressure: Patient reporting episodes of chest pressure over the last 2 weeks, was noted to have mild troponin elevation on initial visit, which has resumed back to normal. He is known to have moderate nonobstructive coronary artery disease based on cardiac catheterization in August of this year, potentially troponin was due to flow mismatch due to rapid ventricular response. But, with his history of coronary artery disease in the past, we will plan after he has pacemaker implantation and cardioversion of him undergoing a Lauren MPI study; we will schedule this to be done tomorrow morning. If things change, we could always consider repeating cardiac catheterization. He is not on aspirin therapy due to a history of peptic ulcer disease, we will re-evaluate after pacemaker implantation. 4. Hyperlipidemia: The patient with noted history of hyperlipidemia. He is on atorvastatin, will repeat a fasting lipid panel in the a.m. for evaluation of therapy. 5. Chronic kidney disease: Patient with history of chronic kidney disease, he is at his baseline, will monitor closely. Thank you for this consultation. We will be glad to follow along with you. /[id number]/MODL MTDD
[2017-06-12] MEDS ORDERED: MIDAZOLAM 2 MG/2 ML VIAL ONE (13:50)
[2017-06-12] MEDS ORDERED: LIDOCAINE 1% 300 MG/30 ML SDV ONE (13:50)
[2017-06-12] MEDS ORDERED: BUPIVACAINE 0.5% 30 ML SDV ONE (13:51)
[2017-06-12] MEDS ORDERED: fentaNYL 100 MCG/2 ML INJ ONE ×2 (13:51→15:01)
--- NOTE | 2017-06-12 14:47 | PDPROPOC ---
Sedation Plan of Care Sedation Plan of Care: mental status noted, patient educated of risks, benefits , alternatives ASA Classification: ASA 3 Planned drugs: fentanyl, midazolam Mallampati Score: Class 3 Mallampati Reference Image: Patient passed 3-3-2 rule?: Yes
--- NOTE | 2017-06-12 14:47 | PDHPUP ---
History & Physical Update H&P update statement: This history and physical update is based on an assessment of the patient which was completed after admission or registration (within 24 hours), but prior to the surgery/procedure. H&P update: H&P reviewed & patient examined, no change in patient's condition since H&P completed
--- NOTE | 2017-06-12 14:53 | PDANEPAE ---
ANE History of Present Illness afib, ANE Past Medical History - Cardiovascular History Hx Hypertension: Yes Hx Arrhythmias: Yes Hx Chest Pain: No Hx Coronary Artery / Peripheral Vascular Disease: Yes Hx CHF / Valvular Disease: No Hx Palpitations: No Cardiovascular History Comment: AFIB 01/16/16 CARDIOVERTED. 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 HTN. CAD. HYPERCHOLESTEROLEMIA - Pulmonary History Hx COPD: No Hx Asthma/Reactive Airway Disease: No Hx Recent Upper Respiratory Infection: No Hx Oxygen in Use at Home: No Hx Sleep Apnea: No Pulmonary History Comment: BRET TRIGGERS NO DX - Neurologic History Hx Cerebrovascular Accident: No Hx Seizures: No Hx Dementia: No Neurologic History Comment: MULTIPLE BACK AND NECK SURGERIES - Endocrine History Hx Diabetes: No - Renal History Hx Renal Disorders: Yes Renal History Comment: BPH - Liver History Hx Hepatic Disorders: No - Neurological & Psychiatric Hx Hx Neurological and Psychiatric Disorders: No - Cancer History Hx Cancer: No Cancer History Comment: PRECANCEROUS CELLS REMOVED FROM FACE - Congenital Disorder History Hx Congenital Disorders: No - GI History Hx Gastrointestinal Disorders: Yes Gastrointestinal History Comment: REFLUX. PUD - Other Health History Other Health History: NONE - Chronic Pain History Chronic Pain: No - Surgical History Prior Surgeries: NECK FUSION WITH FELICIA 02/2013. BACK SURGERY AND HARDWARE REMOVAL 04/2013. BROKEN LEFT CLAVICLE 09/2015 WITH PLATE PLACED. BACK SURGERY 05/2013. RIGHT TKA 11/2010. BACK SURGERY 08/2008. NECK SURGERY 03/2008. RIGHT RTC SURGERY X2 11/2005, 02/2006 ANE Review of Systems Review of Systems: ANE Patient History - Allergies Allergies/Adverse Reactions: amiodarone Allergy (Severe, Verified 06/12/17 07:27) Swelling/neck,face,throat hydrocodone bitartrate [From [place]] Allergy (Verified 06/11/17 19:48) GETS AGITATED oxycodone HCl [From Percocet] Allergy (Verified 06/11/17 19:48) GETS AGITATED - Home Medications Home Medications: amLODIPine BESYLATE [Norvasc 2.5 mg (*)] 1.25 mg PO HS 01/15/16 [Last Taken ] Multivitamins [Multivitamin (*)] 1 each PO HS 06/13/16 [Last Taken 06/10/17] Acetaminophen [Tylenol 325mg (*)] 650 mg PO DAILY PRN 09/18/16 [Last Taken Unknown] Cholecalciferol Vit D3 [Vitamin D3 2000 units tab (OTC)] 2,000 units PO DAILY [Last Taken 06/11/17] Omeprazole [Prilosec 20 mg] 40 mg PO DAILY 09/18/16 [Last Taken 06/11/17] Apixaban [Eliquis] 2.5 mg PO BID 06/11/17 [Last Taken 06/11/17 NEEDS PM DOSE] Cyanocobalamin [Vitamin B12 (*)] 1,000 mcg PO DAILY 06/11/17 [Last Taken ] LORazepam [Ativan (*)] 0.5 mg PO Q8H PRN 06/11/17 [Last Taken Unknown] Metoprolol Tartrate [Lopressor 25 mg (*)] 25 mg PO BID 06/11/17 [Last Taken ] Ramipril [Altace 2.5mg (*)] 2.5 mg PO DAILY 06/11/17 [Last Taken 06/11/17] Zolpidem Tartrate [Ambien 5MG (*)] 5 mg PO HS PRN 06/11/17 [Last Taken Unknown] - Smoking Hx Smoking Status: Former smoker - Family Anes Hx Family Hx Anesthesia Complications: NONE ANE Labs/Vital Signs - Labs Result Diagrams: 06/11/17 19:50 06/12/17 05:47 - Vital Signs Blood Pressure: 130/91 Heart Rate: 135 Respiratory Rate: 19 O2 Sat (%): 2 Height: 170.18 cm Weight: 65.2 kg ANE Physical Exam - Airway Neck exam: decreased ROM Mallampati Score: Class 2 Mouth exam: normal dental/mouth exam - Pulmonary Pulmonary: no respiratory distress - Cardiovascular Cardiovascular: regular rate and rhythym - ASA Status ASA Status: III ANE Anesthesia Plan Total IV Anesthesia: Yes
[2017-06-12] MEDS ORDERED: PROPOFOL 200 MG/20 ML VIAL ONE (15:02)
[2017-06-12] MEDS ORDERED: PROPOFOL/EMULSION 500 MG/50 ML BOTTLE IV ONE (15:02)
--- NOTE | 2017-06-12 17:29 | POSTANESTH ---
Post Anesthetic Evaluation Cardiovascular Status: Normal, Stable Respiratory Status: Normal, Stable Level of Consciousness/Mental Status: Can Participate in Eval Pain Control: Adequate, Prn Tx Ordered Nausea/Vomiting Control: Adequate, Prn Tx Ordered Complications Possibly Related to Anesthesia: None Noted
--- NOTE | 2017-06-12 17:40 | CPEKG ---
Heart Rate: 78 RR Interval: 769 P-R Interval: 180 QRSD Interval: 86 QT Interval: 416 QTC Interval: 474 P [place]: 35 QRS [place]: -1 T Wave [place]: 25 EKG Severity - BORDERLINE ECG - EKG Impression: SINUS RHYTHM EKG Impression: PROBABLE LEFT ATRIAL ABNORMALITY Electronically Signed By: Tono Bright 13-Jun-2017 14:05:40
--- NOTE | 2017-06-12 17:42 | ECHO ---
[email or web address] [address] [address] Main: [phone] Fax: Transesophageal Echocardiography Name: TRENA PHILLIPS MR#: [id number] Study Date: 06/12/2017 Study Time: 03:07 PM Date of : 1940 Age: 77 year(s) Height: ( ) Weight: ( ) BSA: Gender: Male Examination: DEMI Indication: Image Quality: Contrast: Requested by: Miguel Ángel Ortega Heart Rate: Rhythm: BP: / Procedure Staff Wood Cutter: Reading Physician: Margaret Aguiar Requesting Provider: DEMI Exam Details Conclusions: The ejection fraction is visually estimated to be 10 %. All scored wall segments are hypokinetic. An agitated saline study was performed and was negative for intracardiac shunting. No thrombus in left appendage. Mild to moderate mitral regurgitation. Trivial pericardial effusion. Measurements: Chambers Valvular Assessment AV/MV Valvular Assessment TV/PV Normal Normal Normal Name Value Range Name Value Range Name Value Range Visual EF: 10 % Additional Measurements: Findings: Left Ventricle: The ejection fraction is visually estimated to be 10 %. All scored wall segments are hypokinetic. Left Atrium: An agitated saline study was performed and was negative for intracardiac shunting. Left Atrial Appendage: No thrombus in left appendage. Mitral Valve: Patient: TRENA PHILLIPS Study Date: 06/12/2017 Page 1 of 2 03:07 PM Mild to moderate mitral regurgitation. Aortic Valve: The aortic valve is tri-leaflet. Pericardium: Trivial pericardial effusion. l1n (No Signature Object) Patient: TRENA PHILLIPS Study Date: 06/12/2017 Page 2 of 2 03:07 PM [id number]
[2017-06-12] MEDS: MULTIVITAMINS 1 EACH TAB PO SCH (20:50)
[2017-06-12] MEDS: ACETAMINOPHEN 325 MG TAB PO PRN (20:50)
[2017-06-12] MEDS ORDERED: FUROSEMIDE 20 MG/2 ML VIAL IVP ONE (21:00)
[2017-06-13] MEDS ORDERED: hydrALAZINE 20 MG/ML VIAL IVP PRN (02:16)
[2017-06-13 06:20] LABS: % IMMATURE GRANULYOCYTES 0.6 % (0.0-1.1); ABSOLUTE IMMATURE GRANULOCYTES 0.06 10^3/uL (0.00-0.10); ADD DIFF? NO; ADD MORPH? NO; ADD SCAN? NO; ATYPICAL LYMPHOCYTE FLAG 10 (0-99); FRAGMENT RBC FLAG 0 (0-99); HEMATOCRIT 39.9 % (40.0-51.0); HEMOGLOBIN 14.2 g/dL (13.7-17.5); LEFT SHIFT FLG 0 (0-99); LIPEMIA HEMOLYSIS FLAG 90 (0-99); MEAN CELL HEMOGLOBIN 33.9 pg (27.9-34.1); MEAN CELL HEMOGLOBIN CONCENTR. 35.6 g/dL (32.4-36.7); MEAN CELL VOLUME 95.2 fL (81.5-99.8); MEAN PLATELET VOLUME 10.9 fL (8.7-11.7); PLATELET CLUMPS FLAG 0 (0-99); PLATELET COUNT 225 10^3/uL (150-400); RED BLOOD CELL COUNT 4.19 10^6/uL (4.40-6.38); RED CELL DISTRIBUTION WIDTH 13.4 % (11.5-15.2)
[2017-06-13 06:37] LABS: ANION GAP 14 mEq/L (8-16); CALCIUM 9.6 mg/dL (8.5-10.4); CARBON DIOXIDE 17 mEq/l (22-31); CHLORIDE 106 mEq/L (97-110); CHOLESTEROL 141 mg/dL (140-220); CHOLESTEROL/HDL RATIO 2.43 RATIO (1.00-4.97); CREATININE 1.8 mg/dL (0.7-1.3); GLOMERULAR FILTRATION RATE 37; GLUCOSE 74 mg/dL (70-100); HIGH DENSITY LIPOPROTEIN 58 mg/dL (40-65); LDL/HDL RATIO 1.05 RATIO (1.00-3.64); LOW DENSITY LIPOPROTEIN 61 mg/dL (80-100); NON-HIGH DENSITY LIPOPROTEIN 83 mg/dL (90-129); POTASSIUM 4.5 mEq/L (3.5-5.2); SODIUM 137 mEq/L (134-144); TRIGLYCERIDE 110 mg/dL (40-150); VERY LOW DENSITY LIPOPROTEINS 22 mg/dL (8-25)
[2017-06-13] MEDS: ACETAMINOPHEN 325 MG TAB PO PRN (08:35)
[2017-06-13] MEDS: ATORVASTATIN CALCIUM 40 MG TAB PO SCH (08:36)
[2017-06-13] MEDS: CARVEDILOL 6.25 MG TAB PO SCH ×2 (08:36→17:42)
[2017-06-13] MEDS: PANTOPRAZOLE SODIUM 40 MG TAB PO SCH (08:36)
[2017-06-13] MEDS: CHOLECALCIFEROL VIT D3 2,000 UNITS TAB/CAP PO SCH (08:36)
[2017-06-13] MEDS: CYANO/VITAMIN B12 1000 MCG TAB PO SCH (08:36)
--- NOTE | 2017-06-13 08:36 | HOSPPROG ---
Hospitalist Progress Note Assessment/Plan: #Sinus pause: s/p pacemaker. #Severe systolic HF: EF 10%, all segments hypokinetic on DEMI. Ischemia vs. tachyarrthymia. ACEI, Coreg today. Stress when medically managed #Permanent atrial fib: Eliquis 5mg BID, s/p cardioversion 06/12 #CAD: moderate disease on cath 09/11. Stress test in near future #Acute hypoxic resp failure: due above #h/o anxiety: exacerbated by tachy-events. If conts suggested SSRI rather than Ativan. Can FU with PCP #DVT ppx: Eliquis #Disp: warrants inpatient admission with sinus pause requiring pacer, cardioversion and stress testing. Critical care time spent: 45 min reviewing records/medications, evaluating pt and d/w Cardiology Subjective: feeling much better today. No nausea, CP or SOB Objective: Vital Signs Temp Pulse Resp BP Pulse Ox 36.9 C 103 H 22 H 168/100 H 97 06/13/17 07:22 06/13/17 07:22 06/13/17 07:22 06/13/17 07:22 06/13/17 07:22 Laboratory Results 06/13/17 05:34 06/13/17 05:34 06/12/17 06/13/17 06/14/17 05:59 05:59 05:59 Intake Total 750 Output Total 950 Balance -200 PT 17.8 SEC (12.0-15.0) H 06/12/17 11:42 INR 1.47 (0.83-1.16) H 06/12/17 11:42 - Physical Exam Constitutional: no apparent distress Eyes: PERRL Ears, Nose, Mouth, Throat: moist mucous membranes, hearing normal Cardiovascular: other (pacemaker site CDI. ), No tachycardia, No edema Respiratory: other (diminished at bases) Gastrointestinal: normoactive bowel sounds, soft, non-tender abdomen Genitourinary: no bladder fullness Skin: warm Musculoskeletal: other (right arm in sling for pacer) Neurologic: AAOx3, CN II-XII Intact ICD10 Worksheet Patient Problems: Problems Problem Status Onset Atrial fibrillation Acute Elevated troponin Acute Fatigue Acute Chest pain Acute Hypoxia Acute Pulmonary infiltrate present on computed tomography Acute
[2017-06-13] MEDS: RAMIPRIL 2.5 MG CAP PO SCH (08:45)
[2017-06-13] MEDS ORDERED: amLODIPine BESYLATE 5 MG TAB PO SCH (09:00)
--- NOTE | 2017-06-13 10:00 | ASMTCMCOM ---
CM Note CM Note Notes: Chart reviewed. Patient s/p PPM and has low EF. Suspect he may benefit from HHCS. Needs to be determined. CM to follow. Date Signed: 06/13/2017 10:00 AM Electronically Signed By:Deloris Downs RN
--- NOTE | 2017-06-13 10:02 | CPEKG ---
Heart Rate: 99 RR Interval: 606 P-R Interval: 168 QRSD Interval: 88 QT Interval: 340 QTC Interval: 437 P Flippin: 23 QRS Flippin: -18 EKG Severity - BORDERLINE ECG - EKG Impression: SINUS TACHYCARDIA EKG Impression: VENTRICULAR PREMATURE COMPLEX EKG Impression: LVH BY VOLTAGE Electronically Signed By: Toon Bright 13-Jun-2017 14:05:55
--- NOTE | 2017-06-13 10:12 | PDMN ---
Medical Necessity Medical necessity: change to IP; los >2 mn for 10 sec sinus pause requiring pacer, cardioversion & stress testing; comorbid severe systolic heart failure, AFIB, CAD, resp fail; per progress note & order 06/12/17
[2017-06-13] MEDS: APIXABAN 5 MG TAB PO SCH ×2 (12:22→21:48)
--- NOTE | 2017-06-13 14:24 | PDCARPN ---
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 Admitted 06/11 for complaint of fatigue symptoms, ongoing shortness of breath. Morning of the day of admission prior to admission, patient had seen PCP, Dr. Ariza, and found to be in atrial fibrillation with RVR with rates up to 140 BPM. Early a.m. of 06/12, patient noted to have 12 second pause of asystole brief loss of consciousness. Patient underwent DEMI 06/12 which noted reduced ejection fraction to 10% with global hypokinesis. No thrombus in left atrial appendage, [id number] MR. Right after, patient was taken to EP suite where Dr. Edwards successfully implanted dual followed by successful cardioversion back into sinus rhythm. Today, overnight patient has been hypertensive, with systolic blood pressure elevated up to 170, diastolic 107. He reports no further episodes of chest pain or pressure. He has remained in sinus rhythm, sinus tachycardia with no malignant arrhythmias or pauses noted. A.m. chest x-ray showed no delay pneumothorax status post ppm implantation. Minimal asymmetric interstitial edema. Device check done by [facility] today showed device functioning within normal limits. Patient reports no lightheadedness, shortness of breath, palpitations, near-syncope or syncopal events. Plan: 1. 12 second run of asystole with loss of consciousness : patient status post ppm implantation, no further events have been noted. No delayed pneumothorax by chest x-ray. Patient placed under right upper extremity activity restrictions. Device functioning within normal limits. Will need a one-week follow-up device and wound check. 2. Paroxysmal atrial fibrillation: Patient has maintained sinus rhythm. Will start patient on beta-doug today for rate and rhythm control. He has significant chads Vasc score of 5, he meets criteria for Eliquis, at 5 mg p. o. twice daily. We will restart this morning 3. CAD: Patient with known history of non flow limiting moderate CAD. Noted to have mild troponin bump of 0.039 on admission, trending downward, on 0.023. No episodes of chest pressure since hospital admission. More likely troponin bump due to AFib with RVR and flow mismatch. He is currently not on aspirin therapy due to being on Eliquis and history of peptic ulcer disease. Beta-doug as mentioned above, secondary risk prevention with statin therapy. 4. Cardiomyopathy: A DEMI yesterday showing ejection fraction of 10%. Global hypokinesis. Probable due to tachycardia from AFib with RVR. Carvedilol will be started at 6.25 mg p.o. twice daily. Will also resume patient's home dosage of ramipril. At current time, patient appears to be euvolemic with no signs of heart failure. Will have him be weight daily, BMP in a.m.. Will hold on diuretic therapy at this time. Patient will need repeated echocardiogram in 3 months time for re-evaluation of LV after maximum medication management. 5. Hypertension: Patient noted to be hypertensive at night, as mentioned above , but has been resumed on home ramipril and started on carvedilol. Will monitor blood pressure and adjust as necessary 6. Valvular heart disease: Patient noted to have mild to moderate MR. Will monitor for signs for heart failure. Plan on repeated echocardiogram in 3 months time. 7. Hyperlipidemia: Recent fasting lipid panel showed adequate suppression of LDL. Continue on home dose of atorvastatin. Due to new we found cardiomyopathy, we will plan on keeping patient at least 1 more day for adjustment of medications. 06/13/17 14:21 Subjective: patient denies of any chest pressure or pain. Reports no shortness of breath. Has had no palpitations, lightheadedness, orthopnea, near-syncope or syncopal events. Reviewed/Discussed With: family ( Patient's ), other (Dr Edwards and Dr Aguiar) Objective: Vital Signs (8 Hrs) Temp Pulse Resp BP Pulse Ox 06/13/17 11:42 88 20 102/61 91 L 06/13/17 08:45 172/107 H 06/13/17 08:36 98 172/107 H 06/13/17 07:22 36.9 C 103 H 22 H 168/100 H 97 Intake/Output (24 Hrs) 06/12/17 06/13/17 06/14/17 05:59 05:59 05:59 Intake Total 750 Output Total 950 Balance -200 Intake: Oral (ml) 750 Output: Urine (ml) 950 Urinal 950 Other: Intake Quantity Yes Sufficient Result Diagrams: 06/13/17 05:34 06/13/17 05:34 - Physical Exam Constitutional: WDWN, no apparent distress Ears, Nose, Mouth, Throat: moist mucous membranes, no thrush Cardiovascular: regular rate and rhythm, systolic murmur ( 2/6 along left sternal border), pulses symmetric bilat, No jugular vein distention ( 4 cm above sternal notch at 45 degree angle.), No carotid bruit Peripheral Pulses: 1+: dorsalis-pedis (R), dorsalis-pedis (L), 2+: carotid (R), carotid (L) Respiratory: clear to auscultate bilat, no crackles, no wheezes, No reduced air movement, No expiratory wheeze Gastrointestinal: normoactive bowel sounds, no masses Skin: no rashes, warm, no edema, other ( left anterior chest, distal of scapula , pacemaker pocket incision intact, no redness, swelling, drainage or ecchymosis.) Neurologic: AAOx3 Psychiatric: cooperative, interactive, following commands ICD10 Worksheet Patient Problems: Problems Problem Status Onset Atrial fibrillation Acute Elevated troponin Acute Fatigue Acute Chest pain Acute Hypoxia Acute Pulmonary infiltrate present on computed tomography Acute
[2017-06-13] MEDS: ZOLPIDEM TARTRATE 5 MG TAB PO PRN (21:48)
[2017-06-13] MEDS: MULTIVITAMINS 1 EACH TAB PO SCH (21:55)
[2017-06-14 06:29] LABS: CALCIUM 9.2 mg/dL (8.5-10.4); CARBON DIOXIDE 20 mEq/l (22-31); CHLORIDE 107 mEq/L (97-110); CREATININE 1.7 mg/dL (0.7-1.3); GLOMERULAR FILTRATION RATE 39; GLUCOSE 102 mg/dL (70-100)
[2017-06-14 06:34] LABS: POTASSIUM 3.7 mEq/L (3.5-5.2)
[2017-06-14] MEDS: RAMIPRIL 2.5 MG CAP PO SCH (08:14)
[2017-06-14] MEDS: CARVEDILOL 6.25 MG TAB PO SCH ×2 (08:14→17:51)
[2017-06-14] MEDS: APIXABAN 5 MG TAB PO SCH ×2 (08:17→21:35)
[2017-06-14] MEDS: PANTOPRAZOLE SODIUM 40 MG TAB PO SCH (08:17)
[2017-06-14] MEDS: CHOLECALCIFEROL VIT D3 2,000 UNITS TAB/CAP PO SCH (08:18)
[2017-06-14] MEDS: CYANO/VITAMIN B12 1000 MCG TAB PO SCH (08:18)
[2017-06-14] MEDS: ATORVASTATIN CALCIUM 40 MG TAB PO SCH (08:18)
[2017-06-14] MEDS ORDERED: RAMIPRIL 5 MG CAP PO SCH (09:00)
[2017-06-14] MEDS ORDERED: FUROSEMIDE 20 MG/2 ML VIAL IVP ONE (09:39)
[2017-06-14] MEDS ORDERED: POTASSIUM CL 10 MEQ TAB PO ONE (09:40)
[2017-06-14] MEDS ORDERED: RAMIPRIL 2.5 MG CAP PO ONE (09:45)
--- NOTE | 2017-06-14 12:45 | EPPROC ---
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 The pt had symptomatic 10 sec pause while in AF and hence it was decided to implant a dual chamber pacemaker. PROCEDURE NOTE: Patient presented to the cardiac catheterization laboratory in a fasting, post absorptive state. Cardiac builder's labourer nurse administered moderate sedation. The left infraclavicular area was prepped and draped in the usual sterile fashion. Lidocaine plus bupivacaine was used for local anesthesia. Left subclavian venography was performed by injection of iodinated contrast into the left antecubital vein. This was done to assure patency of the vein and also to assess for any anatomical aberrations. Using a combination of blunt and sharp dissection and electrocautery, the dissection was carried down to the prepectoral fascia. All bleeding was controlled with electrocautery. Fluoroscopy was utilized during the entire procedure for venous access and placement of the leads. Using the usual technique, left cephalic vein was accessed and a glidewire was placed. Through this initially a 9F and later a 7F sheath was passed. Placement of the guidewires into the venous system was confirmed by low- pressure blood return and also by visualizing the guidewires advancing into the inferior vena cava. A purse string suture was applied around the guidewires. An active fixation ventricular lead was advanced into the right ventricular apex and screwed in place. Pt was sedated. CV was performed. An active fixation atrial lead was advanced into the right atrial appendage and screwed in place. The peel away sheaths were removed. Pacing thresholds, sensing parameters and lead impedances were measured. There was no diaphragmatic stimulation at maximum output. The leads were sutured to the prepectoral fascia with 3 nonabsorbable sutures each. The pocket was created and it was flushed using antibiotic solution. It was inspected for any bleeding. The leads were attached to the pacemaker securely. The pacemaker was inserted into the pocket and secured in place with a nonabsorbable suture. Fluoroscopy was performed in GIRALDO and L[place] planes to verify right-sided placement of the leads. Also fluoroscopy of the pacemaker pocket was performed. The pacemaker pocket was closed in 3 layers with absorbable vicryl sutures. Steristrips were placed. Appropriate dressing was applied. The patient left the cardiac catheterization laboratory in stable condition. Serial Numbers: Device: [facility] [employer] Assurity MRI SN [id number] Atrial Lead: [facility] Tendril STS 8TC SN [id number] Ventricular Lead: [facility] Tendril 2088TC SN [id number] Stimulation Thresholds & Impedance Measurements: Atrial Lead 3.2mV, 1.2@0.5ms, 529Ohms Ventricular Lead 7.1mV, 0.5@0.5ms, 492Ohms Britt Pacing Parameters Pacing mode: DDDR Lower rate: 60 Upper tracking rate: 120 Upper sensor rate: 120 Patient Problems: Problems Problem Status Onset Atrial fibrillation Acute Elevated troponin Acute Fatigue Acute Chest pain Acute Hypoxia Acute Pulmonary infiltrate present on computed tomography Acute
--- NOTE | 2017-06-14 13:01 | PDCARPN ---
Cardiology Progress Note Chief Complaint: Patient reports improvement in shortness of breath, but ongoing fatigue. 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 Admitted 06/11 for complaint of fatigue symptoms, ongoing shortness of breath. Morning of the day of admission prior to admission, patient had seen PCP, Dr. Ariza, and found to be in atrial fibrillation with RVR with rates up to 140 BPM. Early a.m. of 06/12, patient noted to have 12 second pause of asystole brief loss of consciousness. Patient underwent DEMI 06/12 which noted reduced ejection fraction to 10% with global hypokinesis. No thrombus in left atrial appendage, [id number] MR. Right after, patient was taken to EP suite where Dr. Edwards successfully implanted dual followed by successful cardioversion back into sinus rhythm. Patient reports today that he is feeling less fatigued. Laboratory studies do show mild hyponatremia with sodium at 129, creatinine improved to 1.7. Noted elevated BNP at 11,800. No daily weight has been done at this time. Patient denies of any chest pressure pain. Did note mild improvement in blood pressure with the reinstitution of home ramipril and started on carvedilol, but was noted last evening with systolics up to 150, diastolic 95. The for overnight telemetry monitoring showing sinus rhythm with no malignant arrhythmias or pauses noted. Plan: 1. 12 second run of asystole with loss of consciousness : patient status post ppm implantation, no further events have been noted. No delayed pneumothorax by chest x-ray. Patient placed under right upper extremity activity restrictions. Device functioning within normal limits. Will need a one-week follow-up device and wound check. 2. Paroxysmal atrial fibrillation: Patient has maintained sinus rhythm. Continue on carvedilol. Patient has been reinstituted on Eliquis at 5 mg p. o. twice daily. 3. CAD: Patient with known history of non flow limiting moderate CAD. Patient reports no chest pain or symptoms suggesting of ischemia. 4. Systolic heart failure/ Cardiomyopathy: probably due to tachycardia due to longstanding persistent AFib. DEMI showed EF of 10%, Global hypokinesis. Started on carvedilol. Reinstituted on ramipril. BNP noted to be significantly elevated today, mild JVD and Rales noted in the right lower lobe on auscultation. Hypertensive. increased ramipril to 5 mg p.o. q.day. Will give him Lasix 20 mg IV. Ordered for I and O's and daily weights to be done. 5. Hypertension: Adjusted up ramipril, continue on current dose of carvedilol , IV Lasix ordered. Continue to monitor. 6. Valvular heart disease: Patient noted to have mild to moderate MR. Plan on repeated echocardiogram in 3 months time. 7. hyponatremia: Sodium today 129, urine sodium ordered and pending, IV Lasix ordered, fluid restriction. 8. Hyperlipidemia: Recent fasting lipid panel showed adequate suppression of LDL. Continue on home dose of atorvastatin. 9. renal insufficiency: Patient creatinine maintaining at baseline of 1.7- 1.8. Continue to monitor. 06/14/17 12:52 Subjective: Patient denies of any chest pressure, palpitations, lightheadedness, orthopnea , palpitations, near-syncope or syncopal events. Reviewed/Discussed With: family (Patient ), hospitalist (Dr Contreras), other ( Dr Aguiar) Objective: Vital Signs (8 Hrs) Temp Pulse Resp BP Pulse Ox 06/14/17 12:10 36.4 C 79 107/64 96 06/14/17 08:00 36.7 C 94 15 157/95 H 94 Intake/Output (24 Hrs) 06/13/17 06/14/17 06/15/17 05:59 05:59 05:59 Intake Total 750 1700 320 Output Total 950 Balance -200 1700 320 Intake: Oral (ml) 750 1700 320 Output: Urine (ml) 950 Urinal 950 Other: Intake Quantity Yes Sufficient Number of Voids Toilet 4 Result Diagrams: 06/13/17 05:34 06/14/17 06:05 - Physical Exam Constitutional: no apparent distress Ears, Nose, Mouth, Throat: moist mucous membranes Cardiovascular: regular rate and rhythm, systolic murmur ( 2/6 systolic murmur no left sternal border.), jugular vein distention ( The 5-6 cm above sternal notch at a 45 degree angle), pulses symmetric bilat Peripheral Pulses: 1+: dorsalis-pedis (R), dorsalis-pedis (L), 2+: carotid (R), carotid (L) Respiratory: other ( lungs with mild rales in bases, no rhonchi or wheezing noted.) Gastrointestinal: normoactive bowel sounds Skin: warm, no edema, other ( Pacemaker insertion site, left anterior chest, with no redness, swelling, drainage, ecchymosis, or hematoma.) Neurologic: AAOx3 Psychiatric: cooperative, interactive, following commands ICD10 Worksheet Patient Problems: Problems Problem Status Onset Atrial fibrillation Acute Chest pain Acute Hypoxia Acute Pulmonary infiltrate present on computed tomography Acute Fatigue Acute Elevated troponin Acute
--- NOTE | 2017-06-14 16:34 | HOSPPROG ---
Hospitalist Progress Note Assessment/Plan: Assessment: 77-year-old male presents with acute systolic congestive heart failure exacerbation in the setting of sinus pause, permanent atrial fibrillation, complicated by acute hypoxic respiratory failure Plan: #Sinus pause: requiring PPM and potentially resulting in CHF, s/p pacemaker. #Severe acute systolic CHF: EF 10%, all segments hypokinetic on DEMI, BNP 11,800 and CXR w/ pulm edema (personally interpreted), unclear whether 2/2 ischemia vs. tachyarrthymia -increase ACEI -cont Coreg today -nuc cancelled, arrange s/p resolution -d/w Yair Antonio, cardiology provider, he recommends initiating lasix today #Permanent atrial fib: Eliquis 5mg BID, s/p cardioversion 06/12 #Hyponatremia: Acute, new problem, further w/u indicated. Likely 2/2 hypervolemia and worsening CHF, diurese and repeat level this afternoon -get [place] and PM sNa -counseled patient on 1.5L restriction #CAD: moderate disease on cath 09/11, LDL 61 #Acute hypoxic resp failure: ruled out, tachypnea 2/2 anxiety/Afib events #h/o anxiety: exacerbated by tachy-events. If conts suggested SSRI rather than Ativan. Can FU with PCP #DVT ppx: Eliquis Diet: regular, free water restriction Code: Full Dispo: ADD 06/15, pending stabilization of volume status. Subjective: patient is worried he won't be able to ski this winter Objective: Vital Signs Temp Pulse Resp BP Pulse Ox 36.4 C 80 24 H 149/97 H 98 06/14/17 16:00 06/14/17 16:00 06/14/17 16:00 06/14/17 16:00 06/14/17 16:00 Laboratory Results 06/13/17 05:34 06/14/17 14:30 06/13/17 06/14/17 06/15/17 05:59 05:59 05:59 Intake Total 750 1700 370 Output Total 950 130 Balance -200 1700 240 PT 17.8 SEC (12.0-15.0) H 06/12/17 11:42 INR 1.47 (0.83-1.16) H 06/12/17 11:42 - Physical Exam Constitutional: no apparent distress, appears nourished, not in pain Cardiovascular: No systolic murmur, No irregularly irregular, No tachycardia, No edema Respiratory: inspiratory crackles (bilat bases), No reduced air movement, No expiratory wheeze, No bronchial breath sounds, No respiratory distress Gastrointestinal: normoactive bowel sounds, soft, non-tender abdomen, no palpable masses Skin: other (left chest bandaged) Neurologic: AAOx3, No facial droop Psychiatric: interacting appropriately, not anxious, not encephalopathic, thought process linear ICD10 Worksheet Patient Problems: Problems Problem Status Onset Atrial fibrillation Acute Elevated troponin Acute Fatigue Acute Chest pain Acute Hypoxia Acute Pulmonary infiltrate present on computed tomography Acute
[2017-06-14 19:06] LABS: ANION GAP 14 mEq/L (8-16); SODIUM 141 mEq/L (134-144)
[2017-06-14] MEDS ORDERED: hydrALAZINE 10 MG TAB PO PRN (20:09)
[2017-06-14] MEDS: MULTIVITAMINS 1 EACH TAB PO SCH (21:35)
[2017-06-15] MEDS ORDERED: BENZONATATE 100 MG CAP PO PRN (00:12)
[2017-06-15] MEDS ORDERED: guaiFENesin 200 MG/10 ML UDL PO PRN (00:12)
[2017-06-15 05:02] LABS: ANION GAP 10 mEq/L (8-16); CARBON DIOXIDE 23 mEq/l (22-31); CHLORIDE 107 mEq/L (97-110); CREATININE 1.5 mg/dL (0.7-1.3); GLOMERULAR FILTRATION RATE 45; GLUCOSE 95 mg/dL (70-100); POTASSIUM 3.7 mEq/L (3.5-5.2); SODIUM 140 mEq/L (134-144)
[2017-06-15] MEDS ORDERED: CARVEDILOL 6.25 MG TAB PO SCH (08:30)
[2017-06-15] MEDS ORDERED: POTASSIUM CL 10 MEQ TAB PO SCH (09:00)
[2017-06-15] MEDS ORDERED: RAMIPRIL 5 MG CAP PO SCH (09:00)
[2017-06-15] MEDS ORDERED: FUROSEMIDE 40 MG TAB PO SCH (09:00)
[2017-06-15] MEDS: APIXABAN 5 MG TAB PO SCH (09:06)
[2017-06-15] MEDS: CYANO/VITAMIN B12 1000 MCG TAB PO SCH (09:07)
[2017-06-15] MEDS: ATORVASTATIN CALCIUM 40 MG TAB PO SCH (09:08)
[2017-06-15] MEDS: CHOLECALCIFEROL VIT D3 2,000 UNITS TAB/CAP PO SCH (09:08)
[2017-06-15] MEDS: PANTOPRAZOLE SODIUM 40 MG TAB PO SCH (09:08)
[2017-06-15] MEDS: CARVEDILOL 6.25 MG TAB PO SCH (09:45)
[2017-06-15] MEDS ORDERED: MAGNESIUM SULF 2 GM/WATER 50 ML IV ONE (10:20)
[2017-06-15 10:50] VITALS: BP 152/103; PULSE 92; RESP 15; TEMP 97.6; O2SAT 93
--- NOTE | 2017-06-15 11:17 | ASMTCMCOM ---
CM Note CM Note Notes: 06/15/2017 Case Management Note Met w/pt and Aydee. Pt is retired, has a son in the area. to transport home at d/c. No Case Management d/c needs identified d/t pt age, family support and activity levels prior to admission. No therapy evals ordered. Pt is followed by transitional care RN. Case Management d/c poc: home independent when medically stable with follow up as directed. Case Management available if needs change. Date Signed: 06/15/2017 11:16 AM Electronically Signed By:Mer Gallegos RN
--- NOTE | 2017-06-15 11:28 | PDCARPN ---
Cardiology Progress Note Chief Complaint: Patient reports cough overnight. 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 Admitted 06/11 for complaint of fatigue symptoms, ongoing shortness of breath. Morning of the day of admission prior to admission, patient had seen PCP, Dr. Ariza, and found to be in atrial fibrillation with RVR with rates up to 140 BPM. Early a.m. of 06/12, patient noted to have 12 second pause of asystole brief loss of consciousness. Patient underwent DEMI 06/12 which noted reduced ejection fraction to 10% with global hypokinesis. No thrombus in left atrial appendage, [id number] MR. Right after, patient was taken to EP suite where Dr. Edwards successfully implanted dual followed by successful cardioversion back into sinus rhythm. Today, patient reports cough throughout the night. Mild rales noted in bases bilateral. Denies of any chest pain or shortness of breath. Continuous cardiac monitoring shows that he has been in sinus rhythm with rare premature ventricular contraction. Patient denies of any palpitations, lightheadedness, near-syncope, or syncopal events. Noted improvement in creatinine down to 1.5, magnesium noted to be mildly low at 1.5. Sodium level of 140, note from yesterday initial sodium level was recorded at 129., but re-evaluation was done and found to be at 141. Blood pressure yesterday appear to be improved, but throughout the evening, elevated, up to 146/98. Chest x-ray done showing mild CHF. Plan: 1. 12 second run of asystole with loss of consciousness : patient status post ppm implantation, no further events have been noted. No delayed pneumothorax by chest x-ray. Patient placed under right upper extremity activity restrictions. Device functioning within normal limits. Patient is scheduled for device check this upcoming at [facility]. 2. Paroxysmal atrial fibrillation: Patient has maintained sinus rhythm s/p CV. Continue on carvedilol. Patient has been reinstituted on Eliquis at 5 mg p. o. twice daily. 3. CAD: Patient with known history of non flow limiting moderate CAD from cardiac catheterization done August of this year. Mild troponin bump on admission, that trended down where, probable due to AFib with RVR flow mismatch. Patient reports no chest pain or symptoms suggesting of ischemia. Echocardiogram showing global hypokinesis. After discussion with Dr. Edwards and Dr. Aguiar, consideration for outpatient stress testing at a later date. 4. Systolic heart failure/ Cardiomyopathy: probably due to tachycardia due to longstanding persistent AFib. DEMI showed EF of 10%, Global hypokinesis. Noted to have elevated BNP yesterday. Has been instituted on carvedilol, increased home dose of ramipril, given IV Lasix yesterday. Patient's weight noted to be down 2 kilos from admission weight ( 63.4 kilos). Chest x-ray today showing mild heart failure. Today we will increased Carvedilol to 9.375 mg twice daily, continue on current ramipril at 5 mg p.o. q.day. Will institute oral Lasix at 40 mg p.o. q.day. With his low ejection fraction, have discussed with Dr. Edwards, about potential arrhythmia, since no ventricular arrhythmias have been noted, will not set up life vest at this time. Have had a long discussion with patient and today about the importance of medication compliance, weight monitoring, Low-sodium diet. Patient does have a follow-up appointment set up with Dr. Ibarra on of this week. Patient will need a repeated echocardiogram in 3 months time for evaluation of medical therapy. 5. Hypertension: improvement in blood pressures yesterday with the adjustment of ramipril and IV Lasix. Unfortunately worse again today. Patient reporting cough, doubt this is from ACEi due to long history of being on ramipril. More likely from his mild CHF. As mentioned above, increased carvedilol dose, also started oral Lasix. Have asked patient and to monitor blood pressure at home, keep a log, bring back with him on follow-up office visit. 6. Valvular heart disease: Patient noted to have mild to moderate MR. Plan on repeated echocardiogram in 3 months time. 7. Low Magnesium: 2 g magnesium reordered. 8. Hyperlipidemia: Recent fasting lipid panel showed adequate suppression of LDL. Continue on home dose of atorvastatin. 9. renal insufficiency: improved today, with creatinine at 1.5. Potentially patient can be discharged today, I have scheduled him for a follow -up device and wound check for his pacemaker and office visit with Dr. Ibarra of this week. I have provided him with a lab slip to get a BNP and a BMP drawn on Saturday comma the day before his office visit. He has been asked to monitor his blood pressure, daily weights ( he is to notify us if he gains more than 2 lb in a day or 5 lb in a week). 06/15/17 11:25 Subjective: Patient denies of any chest pressure or pain. Reports no palpitations, orthopnea, lightheadedness, near-syncope or syncopal events. Reviewed/Discussed With: hospitalist (Dr Contreras), other (Dr Aguiar) Objective: Vital Signs (8 Hrs) Temp Pulse Resp BP Pulse Ox 06/15/17 10:48 36.4 C 92 15 152/103 H 93 06/15/17 08:00 36.4 C 86 14 161/20 H 94 06/15/17 03:56 36.7 C 67 18 146/98 H 93 Intake/Output (24 Hrs) 06/14/17 06/15/17 06/16/17 05:59 05:59 05:59 Intake Total 1700 570 Output Total 430 Balance 1700 140 Intake: Oral (ml) 1700 570 Output: Urine (ml) 430 Toilet 380 Urinal 50 Other: Weight 63.4 kg Number of Voids Toilet 4 1 Urinal 1 Result Diagrams: 06/13/17 05:34 06/15/17 04:19 - Physical Exam Constitutional: healthy appearing, no apparent distress Ears, Nose, Mouth, Throat: moist mucous membranes Cardiovascular: regular rate and rhythm, no rubs, no gallops, systolic murmur ( 1-2/6 systolic murmur noted along left sternal border.), pulses symmetric bilat, No carotid bruit Peripheral Pulses: 1+: dorsalis-pedis (R), dorsalis-pedis (L), 2+: carotid (R), carotid (L) Respiratory: other ( Mild rales noted in bases bilateral, no rhonchi, or wheezing noted. No accessary muscle use, no intercostal muscle retraction noted.) Gastrointestinal: normoactive bowel sounds Skin: no rashes, warm, no edema, other ( Pacemaker insertion, left anterior chest just distal to clavicle, incision intact with Steri-Strips. No redness, swelling, or drainage noted. Dressing change done at this time.) Neurologic: AAOx3 Psychiatric: cooperative, interactive, following commands ICD10 Worksheet Patient Problems: Problems Problem Status Onset Atrial fibrillation Acute Elevated troponin Acute Fatigue Acute Chest pain Acute Hypoxia Acute Pulmonary infiltrate present on computed tomography Acute
[2017-06-15] MEDS ORDERED: predniSONE 20 MG TAB PO ONE (13:13)
--- NOTE | 2017-06-15 16:34 | PDDCSUM ---
Discharge Summary Discharge Summary: DISCHARGE SUMMARY FOLLOW-UP ITEMS: Repeat creatinine BUN and lytes this week, follow up with Dr. Cody Armstrong as an outpatient DATE OF ADMISSION: 06/11/2017 DATE OF DISCHARGE: 06/15/2017 DISCHARGE DIAGNOSES: 1. Acute asystole 2. Acute systolic congestive heart failure exacerbation 3. Persistent atrial fibrillation 4. Chronic coronary artery disease 5. Chronic kidney disease stage 3 4. Inflammatory arthritis left thumb CONSULTATIONS: Cardiology PROCEDURES / IMAGING: Transesophageal echocardiogram and permanent pacemaker placement by Dr. Goran Edwards Nuclear medicine stress test demonstrating no inducible ischemia CHIEF COMPLAINT: Tachycardia and chest pain SUBJECTIVE: Patient is feeling well at time of discharge, he is ambulating around the unit without oxygen PHYSICAL EXAM ON DISCHARGE: Systolic blood pressure is 140, heart rate 70, satting well on room air, net-2 kg length of stay, lungs are clear to auscultation bilaterally without any crackles or wheezes, no lower extremity edema, heart rhythm is regular, there is a 2/6 murmur at the apex, alert awake oriented x3 LABS ON DISCHARGE: Potassium 3.7, creatinine 1.5, serum sodium 140, BUN 27 HOSPITAL COURSE BY PROBLEM: The patient presented with acute chest pain and tachycardia in the setting of atrial fibrillation with acute rapid ventricular response and he received a combination of IV metoprolol and up titration of his home dosage of oral metoprolol. At 5:25 a.m. on June 12, the patient experienced 12 seconds of asystole, which resulted in syncope, and subsequent resolution without additional cardiac meds. The patient was seen in consultation by Dr. Goran Edwards, and he recommended immediate permanent pacemaker placement. The device was placed, and the patient has been resumed on his dosage of beta-doug, adjusted to carvedilol given his significant reduction in ejection fraction. Is unclear whether his reduction in ejection fraction was purely secondary to his asystolic event, or whether this had been the precipitating cause. Way, his ejection fraction is approximately 10%, and he did experience an acute systolic congestive heart failure exacerbation, resulting in pulmonary edema and some small pleural effusions. He was initiated on diuresis, as well as afterload reduction, and this included up titration of his ramipril, as well as up titration of his Coreg. He diuresed approximately 2 kg of water weight during this hospitalization, and he will be continued on Lasix, supplemental potassium, ramipril, Coreg, with outpatient CHF Clinic follow-up. After titration of his beta-doug, the patient has been maintained in a normal sinus mechanism. He did undergo stress test which demonstrated no inducible ischemia. On the day of discharge, the patient did experience some acute arthritic pain in the left thumb, which is either secondary to gout or an underlying inflammatory component of osteoarthritis. Given that he has chronic kidney disease stage 3, the patient cannot receive nonsteroidal anti- inflammatory medications but should have his a condition treated with a quick steroid burst. He will receive 4 days of prednisone 20 mg daily. DISCHARGE MEDICATIONS: Please see official discharge medication reconciliation sheet in chart , continue home medications with the up titration of ramipril to 5 mg daily, up titration of carvedilol to 9.375 twice daily, Eliquis 2.5 mg twice daily, Lasix 40 mg daily, potassium 10 mEq daily, prednisone 20 mg daily. DISCHARGE INSTRUCTIONS: Please have outpatient labs this week as scheduled, follow up Dr. Cody Armstrong as scheduled. TIME SPENT: Greater than 30 minutes were spent on direct patient care, as well as discharge planning and preparation.
== END 2017-06-15 15:18 | disposition home or self-care (01) | DRG 242 ==
LOC: F2W 23:05 → F2N 06-12 08:01 → OBSVTOIN 06-12 16:58 → F2W 06-14 17:03
PROVIDERS: ADMIT Family Medicine; ATTEND Family Medicine
DX: I48.1 Persistent atrial fibrillation (principal); I13.0 Hypertensive heart and chronic kidney disease with heart failure and stage 1 through stage 4 chronic kidney disease, or unspecified chronic kidney disease; I50.21 Acute systolic (congestive) heart failure; I46.9 Cardiac arrest, cause unspecified; N18.3 Chronic kidney disease, stage 3 (moderate); I25.10 Atherosclerotic heart disease of native coronary artery without angina pectoris; M19.242 Secondary osteoarthritis, left hand; E78.5 Hyperlipidemia, unspecified; F41.9 Anxiety disorder, unspecified; Z87.891 Personal history of nicotine dependence; Z96.651 Presence of right artificial knee joint
CPT/HCPCS: 96374; 97166-GO; A9500; C1769; C1785; C1898; G0378; G8987-GO-CI; G8988-GO-CI; G8989-GO-CI; J0360; J0690; J1940; J2250; J2704; J3010

== ENCOUNTER 2017-07-10 13:37 | Inpatient (IN) | payer OTHER ==
--- NOTE | 2017-07-10 13:43 | CPEKG ---
Heart Rate: 101 RR Interval: 594 QRSD Interval: 88 QT Interval: 364 QTC Interval: 472 QRS [place]: -9 T Wave [place]: -37 EKG Severity - ABNORMAL ECG - EKG Impression: ATRIAL FIBRILLATION, V-RATE 71-150 EKG Impression: LVH BY VOLTAGE EKG Impression: BORDERLINE T ABNORMALITIES, INFERIOR LEADS Electronically Signed By: Pipo Newton 10-Jul-2017 15:18:50
[2017-07-10] MEDS ORDERED: NS 500 ML IV ONE (14:02)
[2017-07-10 14:19] LABS: % IMMATURE GRANULYOCYTES 0.3 % (0.0-1.1); ABSOLUTE IMMATURE GRANULOCYTES 0.02 10^3/uL (0.00-0.10); ADD DIFF? NO; ADD MORPH? NO; ADD SCAN? NO; ATYPICAL LYMPHOCYTE FLAG 0 (0-99); FRAGMENT RBC FLAG 0 (0-99); HEMATOCRIT 37.8 % (40.0-51.0); HEMOGLOBIN 12.8 g/dL (13.7-17.5); LEFT SHIFT FLG 0 (0-99); LIPEMIA HEMOLYSIS FLAG 90 (0-99); MEAN CELL HEMOGLOBIN 32.8 pg (27.9-34.1); MEAN CELL HEMOGLOBIN CONCENTR. 33.9 g/dL (32.4-36.7); MEAN CELL VOLUME 96.9 fL (81.5-99.8); MEAN PLATELET VOLUME 10.5 fL (8.7-11.7); PLATELET CLUMPS FLAG 20 (0-99); PLATELET COUNT 151 10^3/uL (150-400); RED CELL DISTRIBUTION WIDTH 12.8 % (11.5-15.2)
[2017-07-10 14:29] LABS: ANION GAP 13 mEq/L (8-16); CALCIUM 9.6 mg/dL (8.5-10.4); CARBON DIOXIDE 20 mEq/l (22-31); CHLORIDE 106 mEq/L (97-110); CREATININE 1.9 mg/dL (0.7-1.3); GLOMERULAR FILTRATION RATE 35; GLUCOSE 132 mg/dL (70-100); POTASSIUM 4.4 mEq/L (3.5-5.2); SODIUM 139 mEq/L (134-144)
[2017-07-10 14:41] LABS: CREATINE KINASE-MB FRACTION 3.12 ng/mL (0.00-3.19); TROPONIN I 0.017 ng/mL (0.000-0.034)
[2017-07-10 15:15] LABS: APTT 21.8 SEC (23.0-38.0); INR 1.18 (0.83-1.16)
--- NOTE | 2017-07-10 16:14 | EDPHY ---
H & P Time Seen by Provider: 07/10/17 14:01 HPI/ROS: HPI Syncope. 77-year-old male by private vehicle. He has a history of coronary artery disease, pacemaker as well as sudden cardiac about 1 month ago. He had a pacemaker placed at this time. It is a [employer] device. It was placed by Dr. Riggs at [facility]. He reports that he was at a restaurant having lunch. He was sitting down. He started feeling lightheaded and then had a syncopal event. He leaned forward and put his head down on the table and was unconscious for a minute or 2. Bystanders lowered him to the floor. He then woke up on the floor. No associated chest pain. No associated palpitations. No headache, no shortness of breath. No loss sensation or weakness in his extremities. He reports that he has had this happen to him before but not in some time. It has been attributed to a vasovagal event in the past. He reports that he recently went up on the dose of his carvedilol, taking twice as much as he was prior. ROS: Constitutional: No fever, no chills. As above. Eyes: No discharge. No changes in vision. ENT: No sore throat. No nasal congestion or rhinorrhea. Respiratory: No cough. No shortness of breath. Cardiac: No chest pain, no palpitations. Gastrointestinal: No abdominal pain, no vomiting, no diarrhea. Genitourinary: No hematuria. No dysuria or increased frequency with urination. Musculoskeletal: No back pain. No neck pain. No myalgias or arthralgias. Skin: No rashes. Neurological: No headache. No focal weakness or altered sensation. Past medical history: CHF, acid reflux, hypertension, hyperlipidemia, anxiety, orthopedic surgeries. As above. Social history: Nonsmoker. Here with his . No alcohol. Physical Exam: General Appearance: Alert, no distress. This patient is responding to questions appropriately and in full sentences. This patient appears well- hydrated and well-nourished. Eyes: Pupils equal and round no pallor or injection. No lid edema, erythema or injection. Respiratory: There are no retractions, lungs are clear to auscultation with good air movement bilaterally. Pacemaker left upper chest wall. Insertion site is clean dry and intact. Cardiovascular: Irregular, irregular rhythm. No murmur appreciated. Gastrointestinal: Abdomen is soft and nontender, no masses, bowel sounds normal. No focal tenderness at McBurney's point. No Reyes sign. Neurological: Motor sensory function is grossly intact. Cranial nerves are normal. Skin: Warm and dry, no rashes. Musculoskeletal: Neck is supple and nontender. Extremities are symmetrical. All joints range without pain or impingement. Psychiatric: No agitation. No depression. Database: EKG: EKG time is 1:42 p.m.; EKG shows a narrow complex atrial fibrillation with ventricular rate average of 101. Left ventricular hypertrophy noted. No ST, T- wave changes indicative of acute ischemic or injury pattern. Interpreted by me. Imaging: Chest x-ray AP portable; the cardiac mediastinal silhouette is unremarkable. Left upper chest pacemaker, leads appear to be intact. No evidence of infiltrate or pneumothorax. No acute cardiopulmonary disease process noted. Interpreted by me. Procedures: Emergency department course: Vital signs reviewed. IV placed. Patient placed on a cardiac monitor technician. EKG obtained and reviewed by myself. 4:15 p.m., patient re-evaluated. Resting comfortably at this time. He remains asymptomatic. [facility] has been contacted for interrogation of his pacemaker. 4:20 p.m., spoke with [employer] [facility]. They will come to the hospital to interrogate this patient's pacemaker within the next 2 hours. They will call his registered dental assistant once results are obtained from interrogation. 4:25 p.m., spoke with on-call hospitalist, Dr. Mari Barton. Case discussed in detail. Patient accepted for admission to the PCU. Patient admitted in stable condition. Cardiology to consult. 4:30 p.m., spoke with [facility] heart physician tax assistant Demi. They will see this patient on consultation after admission. The patient has been asymptomatic throughout his emergency department course. His vital signs have remained stable. He was admitted to the PCU in stable and improved condition. Differential Diagnosis: The differential diagnosis on this patient includes but is not limited to pacemaker malfunction, arrhythmia, vasovagal syncope. This represents a partial list of diagnoses considered. These considerations are based on history , physical exam, past history, reassessment and diagnostic testing. Smoking Status: Former smoker Constitutional: Initial Vital Signs Temperature (C) 36.6 C 07/10/17 13:46 Heart Rate 102 H 07/10/17 13:46 Respiratory Rate 20 07/10/17 13:46 Blood Pressure 122/88 H 07/10/17 13:46 O2 Sat (%) 97 07/10/17 13:46 O2 Delivery Mode Room Air Allergies/Adverse Reactions: amiodarone Allergy (Severe, Verified 06/12/17 07:27) Swelling/neck,face,throat hydrocodone bitartrate [From [place]] Allergy (Verified 06/11/17 19:48) GETS AGITATED oxycodone HCl [From Percocet] Allergy (Verified 06/11/17 19:48) GETS AGITATED Home Medications: Medication Instructions Recorded Multivitamins [Multivitamin (*)] 1 each PO HS 06/13/16 Atorvastatin Calcium [Lipitor 40 40 mg PO DAILY #0 tab 06/15/16 mg (*)] Cholecalciferol Vit D3 [Vitamin D3 2,000 units PO DAILY 09/18/16 2000 units tab (OTC)] Apixaban [Eliquis] 2.5 mg PO BID 06/11/17 Cyanocobalamin [Vitamin B12 (*)] 1,000 mcg PO DAILY 06/11/17 Carvedilol [Coreg (*)] 6.25 mg PO DAILY 07/10/17 Carvedilol [Coreg] 12.5 mg PO HS 07/10/17 Furosemide [Lasix 20 MG (*)] 20 mg PO DAILY 07/10/17 Omeprazole 40 mg PO DAILY 07/10/17 Ramipril [Altace 5mg (*)] 7.5 mg PO DAILY 07/10/17 Medical Decision Making - Diagnostics Imaging Results: Imaging Impressions Chest X-Ray 07/10/17 16:14 Impression: Nothing acute identified. - Data Points Laboratory Results: Laboratory Results 07/10/17 14:05 07/10/17 14:05 07/10/17 07/10/17 07/10/17 14:20 14:05 14:05 WBC RBC Hgb Hct MCV MCH MCHC RDW Plt Count MPV Neut % (Auto) Lymph % (Auto) [place] % (Auto) Eos % (Auto) Baso % (Auto) Nucleat RBC Rel Count Absolute Neuts (auto) Absolute Lymphs (auto) Absolute Monos (auto) Absolute Eos (auto) Absolute Basos (auto) Absolute Nucleated RBC Immature Gran % Immature Gran # PT 15.0 SEC SEC TNP (12.0-15.0) INR 1.18 H TNP (0.83-1.16) APTT 21.8 SEC L SEC TNP (23.0-38.0) Sodium 139 mEq/L mEq/L (134-144) Potassium 4.4 mEq/L mEq/L (3.5-5.2) Chloride 106 mEq/L mEq/L (97-110) Carbon Dioxide 20 mEq/l L mEq/l (22-31) Anion Gap 13 mEq/L mEq/L (8-16) BUN 31 mg/dL H mg/dL (7-23) Creatinine 1.9 mg/dL H mg/dL (0.7-1.3) Estimated GFR 35 Glucose 132 mg/dL H mg/dL (70-100) Calcium 9.6 mg/dL mg/dL (8.5-10.4) Creatine Kinase 128 IU/L IU/L (0-224) CK-MB (CK-2) Fraction 3.12 ng/mL ng/mL (0.00-3.19) Troponin I 0.017 ng/mL ng/mL (0.000-0.034) 07/10/17 14:05 WBC 7.83 10^3/uL 10^3/uL (3.80-9.50) RBC 3.90 10^6/uL L 10^6/uL (4.40-6.38) Hgb 12.8 g/dL L g/dL (13.7-17.5) Hct 37.8 % L % (40.0-51.0) MCV 96.9 fL fL (81.5-99.8) MCH 32.8 pg pg (27.9-34.1) MCHC 33.9 g/dL g/dL (32.4-36.7) RDW 12.8 % % (11.5-15.2) Plt Count 151 10^3/uL 10^3/uL (150-400) MPV 10.5 fL fL (8.7-11.7) Neut % (Auto) 68.6 % % (39.3-74.2) Lymph % (Auto) 19.4 % % (15.0-45.0) [place] % (Auto) 8.2 % % (4.5-13.0) Eos % (Auto) 2.7 % % (0.6-7.6) Baso % (Auto) 0.8 % % (0.3-1.7) Nucleat RBC Rel Count 0.0 % % (0.0-0.2) Absolute Neuts (auto) 5.38 10^3/uL 10^3/uL (1.70-6.50) Absolute Lymphs (auto) 1.52 10^3/uL 10^3/uL (1.00-3.00) Absolute Monos (auto) 0.64 10^3/uL 10^3/uL (0.30-0.80) Absolute Eos (auto) 0.21 10^3/uL 10^3/uL (0.03-0.40) Absolute Basos (auto) 0.06 10^3/uL 10^3/uL (0.02-0.10) Absolute Nucleated RBC 0.00 10^3/uL 10^3/uL (0-0.01) Immature Gran % 0.3 % % (0.0-1.1) Immature Gran # 0.02 10^3/uL 10^3/uL (0.00-0.10) PT INR APTT Sodium Potassium Chloride Carbon Dioxide Anion Gap BUN Creatinine Estimated GFR Glucose Calcium Creatine Kinase CK-MB (CK-2) Fraction Troponin I Medications Given: Discontinued Medications Sodium Chloride (Ns) 500 mls @ 1,000 mls/hr IV EDNOW ONE PRN Reason: Protocol Stop: 07/10/17 14:31 Last Admin: 07/10/17 14:10 Dose: 500 mls Departure - Departure Disposition: [facility] Inpatient Acute Clinical Impression: Syncope, Atrial fibrillation, Pacemaker
[2017-07-10] MEDS ORDERED: DILTIAZEM 125 MG in D5W 125 ML IV SCH (19:45)
[2017-07-10] MEDS ORDERED: DILTIAZEM HCL/D5W 125 ML IV SCH (20:00)
[2017-07-10] MEDS ORDERED: ONDANSETRON 4 MG/2 ML VIAL IVP PRN (21:05)
[2017-07-10] MEDS ORDERED: ACETAMINOPHEN 325 MG TAB PO PRN (21:05)
[2017-07-10] MEDS ORDERED: NS 1,000 ML IV SCH (21:15)
--- NOTE | 2017-07-10 21:43 | GHP ---
[f rep st] HISTORY AND PHYSICAL DATE OF ADMISSION: 07/10/2017 CHIEF COMPLAINT: Syncope. HISTORY OF PRESENT ILLNESS: The patient is a 77-year-old male, who had a syncopal event today while eating lunch with a friend. He suddenly became dizzy and diaphoretic, put his head on the table and had a complete syncopal event, woke up to find EMS at table side. He had a pacemaker placed 1 month ago for a 12 second asystolic pause. Interrogation of his pacemaker done in the emergency room revea led rapid atrial fibrillation during the time of the event with a heart rate of 170. The patient has been taking Coreg 6.25 mg in the morning and 12.5 mg in the evening. This morning, alexa love increased his morning Coreg dose to 12.5 mg p.o. daily. Shortly after taking this dose, he became dizzy, he went for a walk, he came home and checked his blood pressure and it was 85/60. He was feel ing a little lightheaded, but decided to proceed with his planned lunch with his friend until this ev ent happened. PAST MEDICAL HISTORY: 1. Systolic congestive heart failure. 2. Pacemaker secondary to asystole. 3. Atrial fibrillation. 4. Coronary artery disease with catheterization showing non flow limiting disease. 5. Chronic kidney disease. Baseline creatinine 1.7 to 1.8. 6. Amiodarone lung toxicity. MEDICATIONS: Please see computer record for full detailed list. ALLERGIES: Amiodarone, oxycodone. SOCIAL HISTORY: No smoking. He drinks 1-2 glasses of wine per night. Lives with his . He is r etired from publishing. REVIEW OF SYSTEMS: Complete review of systems obtained. Review of systems negative regarding CONSTI TUTIONAL, HEENT, GI, PULMONARY, CARDIOVASCULAR, , HEMATOLOGY, SKIN, MUSCULAR, ENDOCRINE, PSYCH exce pt for positives and negatives as in HPI. FAMILY HISTORY: Reviewed, noncontributory to presenting complaint. PHYSICAL EXAMINATION: GENERAL: Well-developed, well-nourished male, in no acute distress. VITAL SI GNS: Temperature is 36.7, pulse 112, blood pressure 136/94, saturating 93% on room air. EYES: Norm al conjunctivae. Pupils equal, round, react to light. ENT: Normal ears, nose. Hearing intact. No rmal teeth. Oropharynx moist. NECK: Trachea midline. No thyromegaly. CHEST: . LUNGS: Clear to auscultation bilaterally. CARDIOVASCULAR: Irregularly irregular, no murmur. No extremit y edema. ABDOMEN: Soft, nontender. No hepatosplenomegaly. SKIN: Warm, dry, intact without rash. MUSCULOSKELETAL: No cyanosis or clubbing. Strength 5/5 upper and lower extremities. NEUROLOGIC: Cranial nerves intact. Normal sensation to light touch. PSYCH: Alert and oriented x3. Normal mood and affect. Normal insight and judgment. Normal memory. LABORATORY DATA: White count 7.83, hematocrit 37.3, platelets 151. Sodium 139, potassium 4.4, chlor marine 106, bicarb 20, BUN 31, creatinine 1.9, glucose 132. Troponins negative. INR is 1.18. Chest x- ray is negative. EKG viewed by me. My personal interpretation is atrial fibrillation with LVH, infe rior T-wave flattening. ASSESSMENT/PLAN: 1. Syncope secondary to rapid atrial fibrillation and hypotension. His pacemaker was interrogated a nd found to have atrial fibrillation with a heart rate of 170. I have spoken with . H e is recommending intravenous diltiazem drip at 5 mg overnight, and they will consult in the morning to discuss further options. He has a history of amiodarone lung toxicity so amiodarone is not an opt ion. Preliminarily, is suggesting Tikosyn versus a cardiac ablation. 2. Atrial fibrillation with sick sinus syndrome, status post pacemaker. Continue his Coreg and Eliq uis. 3. Chronic kidney disease. He is at baseline renal function. CODE STATUS: DNR. ADMISSION STATUS: 1. Will admit to observation and depending on clinical course, will determine length of hospitalizat ion need. 2. DVT prophylaxis. He is low risk given his chronic anticoagulation. /[id number]/MODL
[2017-07-10] MEDS: CARVEDILOL 6.25 MG TAB PO SCH (23:31)
[2017-07-10] MEDS: APIXABAN 5 MG TAB PO SCH (23:32)
[2017-07-11 07:54] LABS: % IMMATURE GRANULYOCYTES 0.3 % (0.0-1.1); ABSOLUTE IMMATURE GRANULOCYTES 0.02 10^3/uL (0.00-0.10); ADD DIFF? NO; ADD MORPH? NO; ADD SCAN? NO; ATYPICAL LYMPHOCYTE FLAG 10 (0-99); FRAGMENT RBC FLAG 0 (0-99); HEMOGLOBIN 12.7 g/dL (13.7-17.5); LEFT SHIFT FLG 0 (0-99); LIPEMIA HEMOLYSIS FLAG 90 (0-99); MEAN CELL HEMOGLOBIN 32.6 pg (27.9-34.1); MEAN CELL HEMOGLOBIN CONCENTR. 34.3 g/dL (32.4-36.7); MEAN CELL VOLUME 94.9 fL (81.5-99.8); MEAN PLATELET VOLUME 10.1 fL (8.7-11.7); PLATELET CLUMPS FLAG 0 (0-99); PLATELET COUNT 227 10^3/uL (150-400)
[2017-07-11 08:10] LABS: ANION GAP 13 mEq/L (8-16); CALCIUM 9.3 mg/dL (8.5-10.4); CARBON DIOXIDE 20 mEq/l (22-31); CHLORIDE 110 mEq/L (97-110); CREATININE 1.5 mg/dL (0.7-1.3); GLOMERULAR FILTRATION RATE 45; GLUCOSE 97 mg/dL (70-100); POTASSIUM 3.8 mEq/L (3.5-5.2); SODIUM 143 mEq/L (134-144)
[2017-07-11 08:21] LABS: TROPONIN I 0.025 ng/mL (0.000-0.034)
[2017-07-11] MEDS ORDERED: FUROSEMIDE 20 MG TAB PO SCH (09:00)
--- NOTE | 2017-07-11 09:05 | CPEKG ---
Heart Rate: 73 RR Interval: 822 QRSD Interval: 90 QT Interval: 400 QTC Interval: 441 QRS [place]: -4 T Wave [place]: -84 EKG Severity - ABNORMAL ECG - EKG Impression: AFIB/FLUT AND V-PACED COMPLEXES Electronically Signed By: Tono Klein 11-Jul-2017 18:38:28
[2017-07-11] MEDS: CYANO/VITAMIN B12 1000 MCG TAB PO SCH (09:22)
[2017-07-11] MEDS: RAMIPRIL 2.5 MG CAP PO SCH (09:22)
[2017-07-11] MEDS: PANTOPRAZOLE SODIUM 40 MG TAB PO SCH (09:23)
[2017-07-11] MEDS: ATORVASTATIN CALCIUM 40 MG TAB PO SCH (09:23)
[2017-07-11] MEDS: CARVEDILOL 6.25 MG TAB PO SCH ×3 (09:23→22:01)
[2017-07-11] MEDS: APIXABAN 5 MG TAB PO SCH ×2 (09:23→22:00)
[2017-07-11] MEDS ORDERED: DOFETILIDE 0.25 MG CAP PO ONE (10:07)
--- NOTE | 2017-07-11 11:25 | ASMTCMCOM ---
CM Note CM Note Notes: Patient admitted after having a syncopal episode. He has a cardiac history, including pacemaker placement one month ago. In the ED, he was found to be in rapid A-fib. Current treatment options include medication management vs. ablation. Patient lives independently with his . No therapies ordered, no discharge needs identified. If needs arise, CM available. Date Signed: 07/11/2017 11:24 AM Electronically Signed By:Kelly Snow RN
[2017-07-11 12:46] LABS: APTT 27.5 SEC (23.0-38.0); INR 1.23 (0.83-1.16); PROTIME(PATIENT) 15.5 SEC (12.0-15.0)
[2017-07-11] MEDS ORDERED: PROTOCOL MAGNESIUM 1 DOSE IV PRN (13:50)
[2017-07-11] MEDS ORDERED: PROTOCOL POTASSIUM 1 DOSE MISC PRN (13:50)
--- NOTE | 2017-07-11 14:42 | CPEKG ---
Heart Rate: 97 RR Interval: 619 QRSD Interval: 82 QT Interval: 376 QTC Interval: 478 QRS [place]: -9 T Wave [place]: 241 EKG Severity - ABNORMAL ECG - EKG Impression: ATRIAL FIBRILLATION, V-RATE 71-114 EKG Impression: VENTRICULAR PREMATURE COMPLEX EKG Impression: BORDERLINE PROLONGED QT INTERVAL EKG Impression: LEFT VENTRICULAR HYPERTROPHY Electronically Signed By: Tono Klein 11-Jul-2017 18:38:11
--- NOTE | 2017-07-11 14:52 | GCON ---
[f rep st] CONSULTATION CARDIOLOGY CONSULTATION DATE OF CONSULTATION: 07/11/2017 PRIMARY CAMP MANAGER: Juan Armstrong MD PRIMARY CABLE DISPATCHER: Goran Edwards MD REASON FOR CONSULTATION: We are asked by Dr. Barton to evaluate this patient for his syncope. 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 He titrated his carvedilol to 12.5, for hi s morning dose from a previous dosing of 6.25 in a.m. and 12.5, at p.m. Yesterday morning he went on a walk and, upon returning home, he noted feeling dizzy. He checked his blood pressure and it was 8 5 systolically. He also notes that he has been feeling a little more dizzy in the past few days and assumes that that is the time line within which he went back into atrial fibrillation. In general, alexa love denies any sensation of palpitations or worsening dyspnea when he is in atrial fibrillation. He went to lunch yesterday, and while eating, he had a syncopal episode. He noted antecedent dizzine ss and became very diaphoretic. He reports a past history of syncope related to vasovagal, and these symptoms were quite similar to previous episodes. Typically, his episodes relate to pain or being a nxious. He has not noted any weight gain, peripheral edema, PND, orthopnea or chest pains. He repor ts he has been compliant with his medication therapies. PAST MEDICAL HISTORY: 1. Systolic CHF, first diagnosed in July of 2016. He was initially seen by Dr. Armstrong in August 2016. He had been skiing in [place] and felt severely short of breath; was hospitalized there fro m 08/22 to 08/23. He had hypoxia with a resting room air sat of 84%. His echo showed an EF of 42%. 2. Paroxysmal atrial fibrillation. He has been on amiodarone for this in the past and developed pul monary toxicity. 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 4. 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 5. Moderate coronary artery disease with last cardiac catheterization in August showing moderate mo re distal coronary artery disease. No PCI was undertaken. 6. Chronic kidney disease with baseline creatinine between 1.5 and 1.9. 7. Hypertension. 8. Dyslipidemia. 9. Previous gastric ulcer. OUTPATIENT MEDICATIONS: These include spironolactone 12.5 mg p.o. daily, atorvastatin 40 mg p.o. marylou ly, B12 complex, carvedilol 6.25 in a.m. and 12.5 in p.m., Eliquis 2.5 mg p.o. b.i.d., furosemide 20 mg p.o. daily, multivitamin, omeprazole, ramipril 7.5 mg p.o. daily, and vitamin D3. ALLERGIES: Amiodarone, hydrocodone, and oxycodone. SOCIAL HISTORY: Patient is . His is present in the room. He reports 1-2 glasses of win e nightly. He is a nonsmoker. REVIEW OF SYSTEMS: As per HPI. A complete 10-point review of systems was obtained and is negative e xcept for what is dictated. FAMILY HISTORY: Coronary artery disease in a brother and father. PHYSICAL EXAMINATION: VITAL SIGNS: BP of 133/85, heart rate 73, respirations 16, O2 saturation 94% on room air, temp of 97.7 degrees Fahrenheit. GENERAL: He is a very pleasant male in no apparent di stress. HEENT: Normocephalic atraumatic. Eyes are without scleral icterus. NECK: Supple without JVD. HEART: Irregularly irregular with no rubs, gallops, or murmurs. LUNGS: Clear. ABDOMEN: Sof t with normoactive bowel sounds. SKIN: Warm and dry. PSYCH: Normal mood and affect. NEURO: No g ross neurologic deficits detected. LABORATORY DATA: CBC: WBC 6.95, hemoglobin 12.7, hematocrit 37, platelet count of 227. Chemistries : Sodium 143, potassium 3.8, chloride 110, CO2 20, BUN 23, creatinine 1.5, glucose 97. Troponin 0.0 17, then 0.027, then 0.025. TSH 2. 12-lead ECG personally interpreted shows coarse atrial fibrillation with intermittently V pacing cont rolled ventricular rate. Chest x-ray shows no acute findings. I have reviewed patient with Dr. Edwards and Diane. Telemetry shows atrial fibrillation. IMPRESSION AND PLAN: The patient is a 77-year-old, being admitted with syncope. 1. Syncope: Likely related to vasovagal. His orthostatics are reassuringly normal. He did titrate his dose of carvedilol, which likely precipitated worsening hypotension. We will reduce the a.m. do se of his carvedilol back to 6.25 daily. 2. Atrial fibrillation: He had a cardioversion in May, and he has not been able to maintain sin us rhythm. We reviewed options, and patient is agreeable to be admitted for Tikosyn titration. Risk s, benefits, and alternatives of this medication reviewed. 3. Systolic congestive heart failure: This is likely tachy mediated. We will try to maintain sinus rhythm with antiarrhythmic drug therapy. He will likely proceed to cardioversion prior to discharge . 4. Coronary artery disease: He has normal enzymes and no evidence of acute coronary syndrome on [facility] s admission. 5. Chronic kidney disease. His Tikosyn will be dosed at 250 mcg p.o. twice daily. We will follow r enal function closely through this admission. /[id number]/MODL
[2017-07-11] MEDS ORDERED: POTASSIUM CL 10 MEQ TAB PO ONE (14:58)
[2017-07-11] MEDS ORDERED: MAGNESIUM SULF 1 GM/DEXTROSE 100 ML IV ONE (15:00)
--- NOTE | 2017-07-11 17:07 | HOSPPROG ---
Hospitalist Progress Note Assessment/Plan: Assessment: 77-year-old male presenting with acute syncope in the setting of persistent atrial fibrillation Plan: 1. Syncope. Acute, most likely secondary to AFib with RVR, possibly exacerbated by iatrogenic hypotension from increasing his home dosage of carvedilol from 6.25 to 12.5 -no recurrence, but patient is high risk given his persistent atrial fibrillation uncontrolled with current medications 2. Persistent atrial fibrillation. Patient's pacemaker demonstrates high risk RVR occurring at the time of his syncope, likely a significant contributing factor -discussed with Shahla Camarena, cardiology provider, she reports to me that the patient has experienced significant decline in his ejection fraction with uncontrolled AFib in the past and given that he is now also contributing to syncope, recommend antiarrhythmic for rhythm control over rate control -plan is for Tikosyn load, monitoring on telemetry and with EKGs -counseled patient that ablation would likely be a second-line management plan if the above is unsuccessful -will continue his home dosage of beta-doug, notably carvedilol 6.25 in the morning, 12.5 at night -continue Eliquis -discontinue diltiazem drip 3. Chronic systolic congestive heart failure. No evidence of acute exacerbation on chest x-ray which demonstrates increased interstitial markings with fibrosis but no margaret failure -monitor volume status closely 4. 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 Chronic kidney disease stage 3. Creatinine currently within baseline range, continue monitor Diet. Cardiac Prophylaxis. High risk patient, currently on Eliquis Code. Do not resuscitate Disposition. Anticipated discharge is uncertain this time, upgraded to inpatient admission status for reasonable medical necessity given the patient's anticipated length stay is greater than 48 hours in order to complete Tikosyn load which requires ongoing telemetry monitoring and frequent EKGs. Subjective: Patient with many questions about his atrial fibrillation plan, counseled extensively, patient denies any ongoing chest pain or recurrent syncope Objective: Vital Signs Temp Pulse Resp BP Pulse Ox 36.7 C 90 16 112/85 H 91 L 07/11/17 15:26 07/11/17 15:26 07/11/17 15:26 07/11/17 15:26 07/11/17 15:26 PT 15.5 SEC (12.0-15.0) H 07/11/17 12:15 INR 1.23 (0.83-1.16) H 07/11/17 12:15 - Time Spent With Patient Time Spent with Patient: greater than 35 minutes Time Spent with Patient: Greater than 35 minutes spent on this patients care, greater than 50% of time spent counseling, educating, and coordinating care regarding the above mentioned plan. - Physical Exam Constitutional: no apparent distress, appears nourished, not in pain Cardiovascular: No systolic murmur, No irregularly irregular, No tachycardia, No edema Respiratory: no respiratory distress, inspiratory crackles (Bilaterally), No reduced air movement, No expiratory wheeze, No bronchial breath sounds, No respiratory distress Gastrointestinal: normoactive bowel sounds, soft, non-tender abdomen, no palpable masses Neurologic: AAOx3, No facial droop Psychiatric: interacting appropriately, not anxious, not encephalopathic, thought process linear ICD10 Worksheet Patient Problems: Problems Problem Status Onset Atrial fibrillation Acute Chest pain Acute Hypoxia Acute Pulmonary infiltrate present on computed tomography Acute Fatigue Acute Elevated troponin Acute Syncope Acute Pacemaker Acute
[2017-07-11 18:36] LABS: POTASSIUM 4.6 mEq/L (3.5-5.2)
[2017-07-11] MEDS: DOFETILIDE 0.25 MG CAP PO SCH (22:00)
[2017-07-12] MEDS ORDERED: DOFETILIDE 0.25 MG CAP PO SCH
--- NOTE | 2017-07-12 00:49 | CPEKG ---
Heart Rate: 101 RR Interval: 594 QRSD Interval: 88 QT Interval: 380 QTC Interval: 493 QRS [place]: -7 T Wave [place]: 12 EKG Severity - ABNORMAL ECG - EKG Impression: ATRIAL FIBRILLATION EKG Impression: VENTRICULAR PREMATURE COMPLEX EKG Impression: BORDERLINE T WAVE ABNORMALITIES EKG Impression: BORDERLINE PROLONGED QT INTERVAL Electronically Signed By: Tono Klein 12-Jul-2017 12:07:40
[2017-07-12 05:28] LABS: INR 1.19 (0.83-1.16); PROTIME(PATIENT) 15.1 SEC (12.0-15.0)
[2017-07-12 05:30] LABS: ANION GAP 9 mEq/L (8-16); CALCIUM 9.5 mg/dL (8.5-10.4); CARBON DIOXIDE 24 mEq/l (22-31); CHLORIDE 109 mEq/L (97-110); CREATININE 1.5 mg/dL (0.7-1.3); GLOMERULAR FILTRATION RATE 45; GLUCOSE 83 mg/dL (70-100); MAGNESIUM 1.7 mg/dL (1.6-2.3); POTASSIUM 4.1 mEq/L (3.5-5.2); SODIUM 142 mEq/L (134-144)
[2017-07-12] MEDS: RAMIPRIL 2.5 MG CAP PO SCH (08:20)
[2017-07-12] MEDS: ATORVASTATIN CALCIUM 40 MG TAB PO SCH (08:21)
[2017-07-12] MEDS: DOFETILIDE 0.25 MG CAP PO SCH ×2 (08:21→20:56)
[2017-07-12] MEDS: APIXABAN 5 MG TAB PO SCH ×2 (08:21→20:55)
[2017-07-12] MEDS: CYANO/VITAMIN B12 1000 MCG TAB PO SCH (08:21)
[2017-07-12] MEDS: CARVEDILOL 6.25 MG TAB PO SCH ×2 (08:21→20:56)
[2017-07-12] MEDS: PANTOPRAZOLE SODIUM 40 MG TAB PO SCH (08:21)
--- NOTE | 2017-07-12 09:22 | PDMN ---
Medical Necessity Medical necessity: change to IP; los>2mn for acute syncope and persistent afib; requires Tikosyn loading with continued tele and frequent EKG's; comorbid chronic systolic CHF, pulmonary fibrosis,and CKD; per order and progress note
--- NOTE | 2017-07-12 10:33 | CPEKG ---
Heart Rate: 72 RR Interval: 833 P-R Interval: 189 QRSD Interval: 90 QT Interval: 404 QTC Interval: 443 P [place]: 50 QRS [place]: -2 T Wave [place]: 2 EKG Severity - ABNORMAL ECG - EKG Impression: ATRIAL-PACED COMPLEXES EKG Impression: BORDERLINE T ABNORMALITIES, DIFFUSE LEADS Electronically Signed By: Tono Klein 12-Jul-2017 12:07:30
--- NOTE | 2017-07-12 11:34 | PDCARPN ---
Cardiology Progress Note Chief Complaint: AF RVR/CHF/syncope Assessment/Plan: Assessment: 77M PMH PAF, SCHF likely tachy-mediated, htn, dyslipidemia, PPM 2/2 sinus arrest , here after episode of syncope. #. syncope: likely in setting of titrating his Carvedilol to 12.5 in AM ( previously taking 6.25) noted hypotension and dizziness throughout the morning and had syncope while eating lunch HR 170 with AF at time of syncope but likely more vasovagal #. SCHF: EF as low as 10% on last DEMI pt likely volume deplete holding lasix and spironolactone pt counseled on daily weights/BP continue Carvedilol and Ramipril #. htn: BP is mildly above goal will watch for now but discussed increasing Ramipril to 10 mg daily #. PAF: p/w AF starting 07/10 at 2 AM now in SR and started on Tikosyn QTc wnl Plan: Keep inpt until 5th dose of Tikosyn and 2 hour post-dose ECG (Sat 11 AM) 07/12/17 11:28 Subjective: Feeling somewhat different with pacer HR increase to 70 (feels he is beeing paced more). No cp, dyspnea, peripheral edema. Reviewed/Discussed With: hospitalist Objective: Vital Signs (8 Hrs) Temp Pulse Resp BP Pulse Ox 07/12/17 11:08 97.7 F 70 18 128/84 H 97 07/12/17 08:00 98.0 F 82 20 129/96 H 07/12/17 07:40 98.7 F 111 H 17 128/86 H 92 07/12/17 04:00 98.0 F 104 H 14 128/86 H 95 Intake/Output (24 Hrs) 07/11/17 07/12/17 07/13/17 05:59 05:59 05:59 Intake Total 700 Balance 700 Intake: Oral (ml) 700 Other: Weight 63.9 kg Intake Quantity Yes Sufficient Number of Voids Toilet 1 Result Diagrams: 07/11/17 07:47 07/12/17 03:54 EKG: A-paced Telemetry: SR - Physical Exam Constitutional: no apparent distress Ears, Nose, Mouth, Throat: moist mucous membranes Cardiovascular: regular rate and rhythm, no murmurs Respiratory: clear to auscultate bilat, no crackles Gastrointestinal: normoactive bowel sounds, no tenderness Skin: no rashes, no abrasions Neurologic: AAOx3 Psychiatric: cooperative, interactive ICD10 Worksheet Patient Problems: Problems Problem Status Onset Atrial fibrillation Acute Pacemaker Acute Syncope Acute Chest pain Acute Elevated troponin Acute Fatigue Acute Hypoxia Acute Pulmonary infiltrate present on computed tomography Acute
--- NOTE | 2017-07-12 13:41 | HOSPPROG ---
Hospitalist Progress Note Assessment/Plan: # syncope - vasovagal vs RVR # a-fib with RVR/ppm - rapid at time of syncope - tikosyn load, follow on tele/ECGs - eliquis # sCHF, last EF 10% - cont coreg, ramipril - lasix on hold # pulm fibrosis d/t amiodarone # CKD 3, stable Subjective: no CP, SOB Objective: Vital Signs Temp Pulse Resp BP Pulse Ox 36.5 C 70 18 128/84 H 97 07/12/17 11:08 07/12/17 11:08 07/12/17 11:08 07/12/17 11:08 07/12/17 11:08 Laboratory Results 07/12/17 03:54 07/11/17 07/12/17 07/13/17 05:59 05:59 05:59 Intake Total 700 Balance 700 PT 15.1 SEC (12.0-15.0) H 07/12/17 03:54 INR 1.19 (0.83-1.16) H 07/12/17 03:54 chart reviewed tele personally reviewed - NSR - Physical Exam Constitutional: no apparent distress, appears nourished Cardiovascular: regular rate and rhythym, no murmur, rub, or gallop Respiratory: no respiratory distress, no rales or rhonchi, clear to auscultation Gastrointestinal: normoactive bowel sounds, soft, non-tender abdomen, no palpable masses ICD10 Worksheet Patient Problems: Problems Problem Status Onset Atrial fibrillation Acute Pacemaker Acute Syncope Acute Chest pain Acute Elevated troponin Acute Fatigue Acute Hypoxia Acute Pulmonary infiltrate present on computed tomography Acute
[2017-07-12 19:01] LABS: POTASSIUM 4.4 mEq/L (3.5-5.2)
--- NOTE | 2017-07-12 23:08 | CPEKG ---
Heart Rate: 70 RR Interval: 857 P-R Interval: 208 QRSD Interval: 96 QT Interval: 436 QTC Interval: 471 P [place]: 3 QRS [place]: -8 T Wave [place]: -3 EKG Severity - ABNORMAL ECG - EKG Impression: ATRIAL-PACED COMPLEXES EKG Impression: BORDERLINE T ABNORMALITIES, INFERIOR LEADS Electronically Signed By: Cody Armstrong 15-Jul-2017 11:51:48
[2017-07-13 06:10] LABS: MAGNESIUM 1.7 mg/dL (1.6-2.3); POTASSIUM 4.3 mEq/L (3.5-5.2)
[2017-07-13] MEDS: CYANO/VITAMIN B12 1000 MCG TAB PO SCH (09:26)
[2017-07-13] MEDS: ATORVASTATIN CALCIUM 40 MG TAB PO SCH (09:27)
[2017-07-13] MEDS: APIXABAN 5 MG TAB PO SCH (09:27)
[2017-07-13] MEDS: RAMIPRIL 2.5 MG CAP PO SCH (09:27)
[2017-07-13] MEDS: CARVEDILOL 6.25 MG TAB PO SCH (09:28)
[2017-07-13] MEDS: PANTOPRAZOLE SODIUM 40 MG TAB PO SCH (09:28)
[2017-07-13] MEDS ORDERED: MAGNESIUM SULF 1 GM/DEXTROSE 100 ML IV ONE ×2 (09:31→13:30)
[2017-07-13] MEDS: DOFETILIDE 0.25 MG CAP PO SCH (09:39)
[2017-07-13 11:14] VITALS: BP 141/78; PULSE 72; RESP 12; TEMP 97.7; O2SAT 94
--- NOTE | 2017-07-13 11:43 | CPEKG ---
Heart Rate: 70 RR Interval: 857 P-R Interval: 172 QRSD Interval: 92 QT Interval: 444 QTC Interval: 480 P [place]: -13 QRS [place]: -12 T Wave [place]: -16 EKG Severity - ABNORMAL ECG - EKG Impression: SINUS RHYTHM EKG Impression: PROBABLE LEFT ATRIAL ABNORMALITY EKG Impression: BORDERLINE T ABNORMALITIES, DIFFUSE LEADS EKG Impression: BORDERLINE PROLONGED QT INTERVAL Electronically Signed By: Cody Armstrong 15-Jul-2017 11:51:30
[2017-07-13 12:06] LABS: ANION GAP 11 mEq/L (8-16); CALCIUM 9.7 mg/dL (8.5-10.4); CARBON DIOXIDE 21 mEq/l (22-31); CHLORIDE 108 mEq/L (97-110); CREATININE 1.6 mg/dL (0.7-1.3); GLOMERULAR FILTRATION RATE 42; GLUCOSE 80 mg/dL (70-100); POTASSIUM 4.2 mEq/L (3.5-5.2); SODIUM 140 mEq/L (134-144)
--- NOTE | 2017-07-13 12:31 | PDCARPN ---
Cardiology Progress Note Chief Complaint: Patient reports he would like to go home. Assessment/Plan: Assessment: 77-year-old male with past medical history including paroxysmal atrial fibrillation, systolic congestive heart failure hypertension, dyslipidemia sick sinus syndrome with remote ppm implantation, renal insufficiency with baseline creatinine between 1.4-1.6. Admitted 07/10 for syncopal event. Found to be in atrial fibrillation. Prior to syncopal event, patient up titrated his carvedilol to 12.5 mg in the a.m. (previously was taking 6.25 mg). Noted be hypotensive and dizzy throughout the morning , syncopal event happened while eating, noted to have heart rates up to 170 while in AFib. Since hospitalization, patient, patient has been started on Tikosyn antiarrhythmic ( past history of amiodarone toxicity), and has self converted back to sinus rhythm. 2 hour post dosing electrocardiograms have been attain , showing QTC remaining within acceptable limits. Initial creatinine 1.9, and has returned back to baseline (today 1.6) , diuretic therapy had been on held. Plan: 1. Syncopal event: Probable combination of recent titration of carvedilol, atrial fibrillation with RVR, possible volume depletion from diuretic therapy and possible vasovagal. No further events noted through hospitalization. 2. Paroxysmal atrial fibrillation: Has had 5th dose of Tikosyn, maintaining sinus rhythm. Continue on beta-doug of carvedilol, previous dosing of 6.25 mg p. o. q.a.m., 12.5 mg p. o. q.p.m.. Remain on Eliquis for anti coagulation. Post dosing electrocardiograms showed QTC with remains in acceptable limits. Patient will be sent home with a 7 day dose of Tikosyn from our pharmacy. He has also been give an RX. 3. Sick sinus syndrome: Patient has permanent pacemaker, scheduled for device check in office in the next 10 days. 4. Chronic systolic heart failure: EF as low as 10% on last DEMI, remain on beta-doug as above. Continue on current dose of ramipril. Due to recent syncopal event, diuretic therapy has been held, patient has had no significant weight gain, or signs worsening failure. Will continue to hold until he is seen in office. Have asked patient to monitor her weights daily, he is to notify us if he gains more than 2 lb in a day or 5 lb in a week. 5. Hypertension: Patient's blood pressure mildly elevated, continue on carvedilol as mentioned above, increased ramipril up to 10 mg p.o. q.day. Have asked patient to monitor blood pressure on a daily basis, keeping a log, bring in to our office for follow-up visit. 6. Renal insufficiency: Patient's baseline creatinine 1.4-1.6, noted on admission of 1.9, and has returned back to baseline. Hold diuretic therapy as mentioned above. Patient can be discharged today, I will have the office contact him on Saturday, for him to be seen in the next 7-10 days. I have told the patient and his they have any problems or concerns once discharged they are to return to the hospital or call [facility]. 07/13/17 12:29 Subjective: Patient denies of any chest pain, shortness of breath, palpitations, lightheadedness, near-syncope, or syncopal events. Continues cardiac monitoring showing that he has maintained sinus rhythm/ atrial pace with intrinsic ventricular response with no malignant arrhythmias. Reviewed/Discussed With: hospitalist (Dr Aragon), other (Dr Ellis) Objective: Vital Signs (8 Hrs) Temp Pulse Resp BP Pulse Ox 07/13/17 11:13 36.5 C 72 12 141/78 H 94 07/13/17 07:13 36.1 C 70 18 155/108 H 97 Intake/Output (24 Hrs) 07/12/17 07/13/17 07/14/17 05:59 05:59 05:59 Intake Total 700 750 Balance 700 750 Intake: Oral (ml) 700 750 Other: Weight 63.9 kg 63.1 kg Intake Quantity Yes Yes Sufficient Number of Voids Toilet 1 1 Result Diagrams: 07/11/17 07:47 07/13/17 04:20 - Physical Exam Constitutional: WDWN, no apparent distress Ears, Nose, Mouth, Throat: moist mucous membranes Cardiovascular: regular rate and rhythm, no gallops, pulses symmetric bilat, No jugular vein distention Peripheral Pulses: 1+: dorsalis-pedis (R), dorsalis-pedis (L), 2+: carotid (R), carotid (L) Respiratory: clear to auscultate bilat, no crackles, no wheezes Gastrointestinal: normoactive bowel sounds Skin: warm, no edema Neurologic: AAOx3 Psychiatric: cooperative, interactive, following commands ICD10 Worksheet Patient Problems: Problems Problem Status Onset Atrial fibrillation Acute Chest pain Acute Hypoxia Acute Pulmonary infiltrate present on computed tomography Acute Fatigue Acute Elevated troponin Acute Syncope Acute Pacemaker Acute
--- NOTE | 2017-07-13 13:22 | GDS ---
[f rep st] DISCHARGE SUMMARY ALL DIAGNOSES: 1. Syncope. 2. Atrial fibrillation with rapid ventricular response. 3. Systolic congestive heart failure. 4. Hypertension. 5. Paroxysmal atrial fibrillation with rapid ventricular response, status post pacemaker. HOSPITAL COURSE BY PROBLEM: 1. Syncope: This was a presenting complaint. After review, this is most likely vasovagal in nature . However, he did have an episode of atrial fibrillation with RVR at the time of his syncope. 2. Atrial fibrillation with RVR: Given his high risk, an intolerance of amiodarone due to pulmonary fibrosis, he was started on Tikosyn. He is followed with serial EKGs which have shown his QTc to be 480 on the day of discharge. Cardiology has okayed him to continue on Tikosyn for now. He is in si nus rhythm on discharge. He will follow up with Dr. Armstrong in 1 week. Cardiac medication changes inc briannee holding his furosemide now (he will follow a low-salt diet and check daily weights), slight incr ease of his ramipril to 10 mg p.o. daily. I discussed all this with Yair Alvarez. Dr. Ellis has written him a prescription for Tikosyn. BILLING: I spent more than 30 minutes on the day of discharge coordinating care. /[id number]/MODL
--- NOTE | 2017-07-13 15:03 | ASDISCHSUM ---
Discharge Information Plan Status:Home with No Needs Medically Cleared to Leave:07/12/2017 Discharge Date:07/13/2017 02:52 PM CM D/C Disposition:Home, Routine, Self-Care ADT D/C Disposition:Home, Routine, Self-Care Projected Discharge Date:07/13/2017 02:52 PM Transportation at D/C:Family Discharge Delay Reason: Follow-Up Date:07/13/2017 02:52 PM Discharge Slot:2 - 12:01 pm - 18:00 pm Final Diagnosis:Syncope, afib w/ RVR, systolic CHF, HTN, paroxysmal afib w/ RVR s/p PPM Placement Information Patient Contact Information Contact Name:HOWARD Relationship: Address:[address] City:[place] Alternate Phone: [facility]/Zip Code:[place] [address] Email: Financial Information Financial Class: Primary Plan Desc:MEDICARE INPATIENT Primary Plan Number:[id number] Secondary Plan Desc:[facility] P[facility]UNE Secondary Plan Number:[id number] Assessment Information LACE LACE Acuity / Level of Care Answers: Was the patient admitted to hospital via the emergency department? Yes: Comorbidities - select Answers: Congestive heart failure all that apply Emergency dept visits in Answers: 1 last 6 months Score: 6 Date Signed: 07/10/2017 05:20 PM Electronically Signed By:Nel Ng RN [facility] Progress Note CM Note CM Note Notes: Patient admitted after having a syncopal episode. He has a cardiac history, including pacemaker placement one month ago. In the ED, he was found to be in rapid A-fib. Current treatment options include medication management vs. ablation. Patient lives independently with his . No therapies ordered, no discharge needs identified. If needs arise, CM available. Date Signed: 07/11/2017 11:24 AM Electronically Signed By:Kelly Snow RN Case Management Discharge Plan Note Case Management Discharge Discharge Order Complete? Answers: Yes Patient to Obtain Answers: Independently Medications Transportation Arranged Answers: Family/Friends Transport will Pick (Date 07/13/2017 12:00 AM & Time) EMTALA Complete Answers: No Notes: n/a Case Management Transport Answers: No Notes: n/a Form Complete Faxed Final Orders Answers: No Notes: n/a Agency/Facility Transfer Answers: No Notes: n/a Report Printed & Faxed to Receiving Agency Family Notified Answers: Yes Notes: Pt notified Discharge Comments Notes: Reviewed chart regarding discharge plan, pt's progress. Pt admitted w/ syncope, afib w/ RVR, CHF, HTN. Pt to discharge home independently w/ family support and no identified needs. Pt to follow up as directed. IM not signed, pt left prior to signing; admit < 24 hrs. CM avail for any further issues or concerns. Date Signed: 07/13/2017 03:01 PM Electronically Signed By:Brinda Gauthier RN Intervention Information
[2017-07-14] MEDS ORDERED: RAMIPRIL 5 MG CAP PO SCH (09:00)
--- NOTE | 2017-07-15 16:14 | CPEKG ---
Heart Rate: 60 RR Interval: 1000 P-R Interval: 184 QRSD Interval: 94 QT Interval: 448 QTC Interval: 448 P May: 29 QRS May: 64 T Wave May: 42 EKG Severity - ABNORMAL ECG - EKG Impression: SINUS RHYTHM EKG Impression: LEFT VENTRICULAR HYPERTROPHY EKG Impression: ST ELEVATION, PROBABLE LATERAL INJURY EKG Impression: ANTERIOR ST ELEVATION, PROBABLY DUE TO LVH Electronically Signed For: Cody Armstrong 15-Jul-2017 16:30:18
--- NOTE | 2017-07-15 16:19 | CPEKG ---
Heart Rate: 60 RR Interval: 1000 P-R Interval: 192 QRSD Interval: 98 QT Interval: 440 QTC Interval: 440 P [place]: 20 QRS [place]: 64 T Wave [place]: 38 EKG Severity - ABNORMAL ECG - EKG Impression: SINUS RHYTHM EKG Impression: LEFT VENTRICULAR HYPERTROPHY EKG Impression: ST ELEVATION, PROBABLE LATERAL INJURY EKG Impression: ANTERIOR ST ELEVATION, PROBABLY DUE TO LVH Electronically Signed For: Cody Armstrong 15-Jul-2017 16:30:48
--- NOTE | 2017-07-15 16:26 | CPEKG ---
Heart Rate: 70 RR Interval: 857 P-R Interval: 208 QRSD Interval: 92 QT Interval: 452 QTC Interval: 488 P [place]: 17 QRS [place]: -10 T Wave [place]: -16 EKG Severity - ABNORMAL ECG - EKG Impression: SINUS RHYTHM EKG Impression: NONSPECIFIC T ABNORMALITIES, DIFFUSE LEADS EKG Impression: BORDERLINE PROLONGED QT INTERVAL Electronically Signed For: Cody Armstrong 15-Jul-2017 16:31:05
== END 2017-07-13 14:52 | disposition home or self-care (01) | DRG 309 ==
LOC: EDUNIT# → F2W 17:47 → OBSVTOIN 07-11 12:35
PROVIDERS: ADMIT Internal Medicine; ATTEND Student in an Organized Health Care Education/Training Program
DX: I48.1 Persistent atrial fibrillation (principal); R55 Syncope and collapse; I95.9 Hypotension, unspecified; I13.0 Hypertensive heart and chronic kidney disease with heart failure and stage 1 through stage 4 chronic kidney disease, or unspecified chronic kidney disease; N18.3 Chronic kidney disease, stage 3 (moderate); I50.22 Chronic systolic (congestive) heart failure; I25.10 Atherosclerotic heart disease of native coronary artery without angina pectoris; E78.5 Hyperlipidemia, unspecified; K21.9 Gastro-esophageal reflux disease without esophagitis; J84.10 Pulmonary fibrosis, unspecified; Z87.11 Personal history of peptic ulcer disease; Z95.0 Presence of cardiac pacemaker
CPT/HCPCS: G0378; J3475

== ENCOUNTER 2017-09-11 14:58 | Emergency (ER) | payer OTHER ==
[2017-09-11 15:25] LABS: PLATELET COUNT 245 10^3/uL (150-400)
--- NOTE | 2017-09-11 15:31 | CPEKG ---
Heart Rate: 70 RR Interval: 857 P-R Interval: 200 QRSD Interval: 86 QT Interval: 444 QTC Interval: 480 P [place]: -3 QRS [place]: -18 T Wave [place]: 110 EKG Severity - ABNORMAL ECG - EKG Impression: ATRIAL-PACED COMPLEXES EKG Impression: PROBABLE LEFT ATRIAL ABNORMALITY EKG Impression: LVH WITH SECONDARY REPOLARIZATION ABNORMALITY EKG Impression: BORDERLINE PROLONGED QT INTERVAL Electronically Signed By: Alissa Lindsay 11-Sep-2017 20:00:37
[2017-09-11 15:33] LABS: INR 1.14 (0.83-1.16); PROTIME(PATIENT) 14.8 SEC (12.0-15.0)
[2017-09-11] MEDS ORDERED: NS 1,000 ML IV ONE (15:33)
[2017-09-11] MEDS ORDERED: IOPAMIDOL (ISOVUE-300) 100 ML BTL ONE (15:38)
[2017-09-11] MEDS ORDERED: AMOXICILLIN/CLAVULANATE POT 875/125 MG TAB PO ONE (17:18)
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
[2017-09-11] MEDS ORDERED: ACETAMINOPHEN/CODEINE 300/30MG TAB PO ONE (18:49)
[2017-09-11 18:58] VITALS: BP 169/104; PULSE 84; RESP 18; TEMP 98.2; O2SAT 92
== END 2017-09-11 19:02 | disposition home or self-care (01) ==
DX: K57.32 Diverticulitis of large intestine without perforation or abscess without bleeding (principal); J44.9 Chronic obstructive pulmonary disease, unspecified; I11.0 Hypertensive heart disease with heart failure; I50.9 Heart failure, unspecified; E86.9 Volume depletion, unspecified; Z79.01 Long term (current) use of anticoagulants; Z95.0 Presence of cardiac pacemaker; Z87.891 Personal history of nicotine dependence
CPT/HCPCS: 82947-QW; 96374; Q9967

== ENCOUNTER → 2017-10-04 | Outpatient (CLI) | payer OTHER | LOC: BHFA 14:45 | PROVIDERS: ATTEND Internal Medicine Interventional Cardiology | DX: I48.91 Unspecified atrial fibrillation (principal); I25.10 Atherosclerotic heart disease of native coronary artery without angina pectoris ==

== ENCOUNTER 2017-11-18 19:13 | Emergency (ER) | payer OTHER ==
[2017-11-18 19:26] VITALS: BP 146/95
[2017-11-18] MEDS ORDERED: ACETAMINOPHEN 325 MG TAB PO ONE (19:38)
--- NOTE | 2017-11-18 19:42 | EDPHY ---
H & P Time Seen by Provider: 11/18/17 19:25 HPI/ROS: CHIEF COMPLAINT: Right shoulder pain HISTORY OF PRESENT ILLNESS: Patient has a history of multiple right shoulder surgeries and has what he calls a " nonfunctioning" rotator cuff. He at around 5:30 a.m. Today had nontraumatic onset of right shoulder pain which he describes as sharp and intermittent crampy. Mostly located in the upper humerus area and deltoid area. Worse if he tries to do certain motions including wide external rotation or significant abduction. Not associated with weakness or numbness in the hand or skin changes or fever or any acute injury or trauma. REVIEW OF SYSTEMS: Otherwise negative PAST MEDICAL HISTORY: Atrial fibrillation on Eliquis, pacemaker, hypertension, multiple right shoulder surgeries Social history: Dr. Pruitt is his current orthopedist General Appearance: Alert and conversant, cooperative. Normal right hand strength and sensation, normal right radial pulse. Patient has some tenderness to palpation of the proximal humerus and musculature there. There is not visible external swelling. Skin is normal without bruising or redness or warmth. Normal range of motion of the right elbow wrist and hand. No clavicular tenderness or spinal tenderness, nontender at the AC. Normal passive range of motion of the right shoulder with my moving it including abduction and rotation and adduction. Emergency Department course/MDM: With afebrile, not warm to the touch, good passive range of motion I think that septic joint or hemarthrosis or hematoma is unlikely. Other infection I think would be also unlikely. Fracture less likely. Cervical radiculopathy less likely with pain to palpation of the muscles and worse with movement of the shoulder. Does not have evidence for neurologic or vascular compromise. Plan for x-ray right shoulder, sling, oral ibuprofen, ice pack. Orthopedic follow-up. 1953: X-ray reviewed with the patient, negative except for previous anchors Smoking Status: Former smoker Constitutional: Initial Vital Signs Temperature (C) 36.5 C 11/18/17 19:22 Heart Rate 74 11/18/17 19:22 Respiratory Rate 17 11/18/17 19:22 Blood Pressure 146/95 H 11/18/17 19:22 O2 Sat (%) 96 11/18/17 19:22 O2 Delivery Mode Room Air Allergies/Adverse Reactions: amiodarone Allergy (Severe, Verified 06/12/17 07:27) Swelling/neck,face,throat hydrocodone bitartrate [From [place]] Allergy (Verified 06/11/17 19:48) GETS AGITATED oxycodone HCl [From Percocet] Allergy (Verified 06/11/17 19:48) GETS AGITATED Home Medications: Medication Instructions Recorded Multivitamins [Multivitamin (*)] 1 each PO HS 06/13/16 Apixaban [Eliquis] 2.5 mg PO BID 06/11/17 Carvedilol [Coreg (*)] 6.25 mg PO DAILY 07/10/17 Carvedilol [Coreg] 12.5 mg PO HS 07/10/17 Ramipril [Altace] 10 mg PO DAILY #30 capsule 07/13/17 MDM/Departure - [facility] Imaging Results: Imaging Impressions Shoulder X-Ray 11/18/17 19:38 Impression: 1. No acute abnormality. 2. Stable subacromial spurring, which can contribute to rotator cuff impingement. Humerus X-Ray 11/18/17 19:40 Impression: No evidence of acute pathology. Imaging: I viewed and interpreted images myself Medications Given: Discontinued Medications Acetaminophen (Tylenol) 650 mg PO EDNOW ONE Stop: 11/18/17 19:39 Last Admin: 11/18/17 19:42 Dose: 650 mg - Depart Disposition: Home, Routine, Self-Care Clinical Impression: Right shoulder pain Qualifiers: Chronicity: acute Qualified Code(s): M25.511 - Pain in right shoulder Condition: Good Instructions: Shoulder Pain (ED) Additional Instructions: Sling for comfort as needed. Acetaminophen 650 mg orally every 8 hr as needed for pain. Please see orthopedist in the office this week Referrals: Memo Ariza MD [Primary Care Provider] - As per Instructions Buck Pruitt MD [Medical Doctor] - As per Instructions (Please follow-up with your orthopedic surgeon this week.)
== END 2017-11-18 20:05 | disposition home or self-care (01) ==
DX: M25.511 Pain in right shoulder (principal); I10 Essential (primary) hypertension; Z79.01 Long term (current) use of anticoagulants; Z87.891 Personal history of nicotine dependence; Z95.0 Presence of cardiac pacemaker
CPT/HCPCS: 73030; 73060; 99283; A4565

== ENCOUNTER → 2018-01-23 | Outpatient (CLI) | payer OTHER | LOC: BHFA 13:15 | PROVIDERS: ATTEND Internal Medicine Cardiovascular Disease | DX: I25.10 Atherosclerotic heart disease of native coronary artery without angina pectoris (principal); I50.22 Chronic systolic (congestive) heart failure; R42 Dizziness and giddiness; N18.9 Chronic kidney disease, unspecified ==

== ENCOUNTER → 2018-02-19 | Outpatient (CLI) | payer OTHER ==
--- NOTE | 2018-02-19 16:48 | ECHO ---
[email or web address] [address] [address] Main: [phone] Fax: Transthoracic Echocardiogram Name: TRENA PHILLIPS MR#: [id number] Study Date: 02/19/2018 Study Time: 01:42 PM Date of : 1940 Age: 77 year(s) Height: ( ) Weight: ( ) BSA: Gender: Male Examination: Echo Indication: CHF Image Quality: Contrast: Requested by: Cody Armstrong BP: 130 mmHg/82 mmHg Heart Rate: Rhythm: Normal sinus rhythm with ectopy Indication: CHF Procedure Staff Utility Locate Technician: Clint Patton RDCS Reading Physician: Gurpreet Murphy MD Requesting Provider: Conclusions: No pericardial effusion. Concentric left ventricular hypertrophy. Ejection fraction 55%. Pacemaker in the right ventricle. Mild aortic regurgitation. Mild tricuspid regurgitation. Measurements: Chambers Valvular Assessment AV/MV Valvular Assessment TV/PV Normal Normal Normal Name Value Range Name Value Range Name Value Range Ao Veena (MM): 3.9 cm (2.2 cm-3.7 AV Vmax: 1.39 m/s (1 m/s-1.7 TR Vmax: 3.03 mm/s ( - ) cm) m/s) TR PGmax: 37 mmHg ( - ) IVSd (2D): 1.0 cm (0.6 cm-1.1 AV maxP mmHg ( - ) syst. PAP: 42 mmHg ( - ) cm) AV meanP mmHg ( - ) PV Vmax: 0.81 m/s (0.6 m/s-0.9 LVDd (2D): 4.5 cm (4.2 cm-5.9 ALEK (VTI): 1.9 cm ( - ) m/s) cm) AR (PHT): 564 ms ( - ) PV PGmax: 3 mmHg ( - ) LVDs (2D): 3.2 cm (2.1 cm-4 MV E Vmax: 0.55 m/s ( - ) cm) MV A Vmax: 0.90 m/s ( - ) LVPWd (2D): 1.1 cm (0.6 cm-1 cm) MV E/A: 0.61 ( - ) LVOTd 2.1 cm 2.1 cm mm LVEF (MOD4): 55 % (>=55 %) Continued Measurements: Chambers Valvular Assessment AV/MV Valvular Assessment TV/PV Name Value Name Value Name Value LADs Lon.5 cm MV E' Septal: 0.04 m/s CVP (est.): 5 mmHg LA Area: 23.0 cm2 MV E/E' Septal: 13.40 AR Vmax: 2.80 cm/s Patient: TRENA PHILLIPS Study Date: 02/19/2018 Page 1 of 2 01:42 PM Findings: Left Ventricle: Normal size left ventricle. Mild concentric LV hypertrophy. Normal global systolic LV function. EF is 55 %. Diastolic dysfunction is present. . Right Ventricle: Normal size right ventricle. Normal RV function. There is a pacemaker lead noted in the right ventricle. Left Atrium: The left atrium is mildly dilated. Right Atrium: The right atrium is normal in size. Mitral Valve: The mitral valve is normal in appearance and function. Trivial to mild mitral regurgitation. Aortic Valve: The aortic valve is tri-leaflet. Mild aortic valve regurgitation is present. Tricuspid Valve: Trivial to mild tricuspid valve regurgitation. The pulmonary artery pressure is normal. Pulmonic Valve: The pulmonic valve is normal in appearance and function. Aorta: The aorta is normal. Pericardium: No pericardial effusion. (No Signature Object) Patient: TRENA PHILLIPS Study Date: 02/19/2018 Page 2 of 2 01:42 PM [id number]
== END ==
LOC: FCP 13:35
PROVIDERS: ATTEND Internal Medicine Cardiovascular Disease
DX: I25.10 Atherosclerotic heart disease of native coronary artery without angina pectoris (principal); I51.7 Cardiomegaly; I50.22 Chronic systolic (congestive) heart failure; Z95.0 Presence of cardiac pacemaker

== ENCOUNTER 2018-05-07 10:06 | Day surgery (SDC) | payer OTHER ==
[2018-05-07] MEDS ORDERED: BENZOCAINE UNIT DOSE SPRAY HURRICAINE MM ONE (10:13)
[2018-05-07] MEDS ORDERED: MIDAZOLAM 2 MG/2 ML VIAL IVP ONE (10:13)
[2018-05-07] MEDS ORDERED: ATROPINE SULFATE 1 MG/10 ML SYR IVP ONE (10:13)
[2018-05-07] MEDS ORDERED: fentaNYL 100 MCG/2 ML INJ IVP ONE (10:13)
[2018-05-07] MEDS ORDERED: NS 500 ML IV ONE (10:13)
--- NOTE | 2018-05-08 08:40 | CPEKG ---
Test Reason : OPEN Blood Pressure : / mmHG Vent. Rate : 070 BPM Atrial Rate : 070 BPM P-R Int : 184 ms QRS Dur : 087 ms QT Int : 395 ms P-R-T Axes : 001 001 030 degrees QTc Int : 427 ms Atrial-paced complexes Probable left atrial enlargement Confirmed by Rafa Campos ([id number]) on 05/08/2018 8:39:35 AM Referred By: Confirmed By:Rafa Campos
== END 2018-05-07 10:30 | disposition home or self-care (01) ==
LOC: FCATH 10:06
PROVIDERS: ATTEND Internal Medicine Cardiovascular Disease
DX: I48.91 Unspecified atrial fibrillation (principal); Z53.09 Procedure and treatment not carried out because of other contraindication

== ENCOUNTER 2018-05-19 10:49 | Inpatient (IN) | payer OTHER ==
[2018-05-19 12:18] LABS: PLATELET COUNT 216 10^3/uL (150-400)
[2018-05-19 12:26] LABS: INR 1.19 (0.83-1.16); PROTIME(PATIENT) 15.3 SEC (12.0-15.0)
--- NOTE | 2018-05-19 12:54 | PDCARPN ---
Cardiology Progress Note Chief Complaint: PAF/tachy-mediated myopathy Assessment/Plan: Assessment: Plan: ICD10 Worksheet Patient Problems: Problems Problem Status Onset Atrial fibrillation Acute Chest pain Acute Elevated troponin Acute Fatigue Acute Hypoxia Acute Pacemaker Acute Pulmonary infiltrate present on computed tomography Acute Syncope Acute
--- NOTE | 2018-05-19 13:05 | PDCARPN ---
Cardiology Progress Note Chief Complaint: PAF Assessment/Plan: Assessment: 77 y/o man with PAF with PPM and Eliquis, moderate non-obstructive CAD by cardiac cath 09/11, resolved non-ischemic CHF (probably tachy-induced from his afib) with LVEF 10%>>40% CKD with serum creatinine 1.7, HTN, hyperlipidemia, resolving pulmonary fibrosis s/p PO Amiodarone in past, previous gastric ulcer and diverticulitis Last cardiac cath 09/11 showed moderate CAD; no PCI undertaken. Last echo from 02/19/18 showed EF 55, concentric LVH and mild AR/TR. He has seen Dr. Alfaro after noting more frequent AF with daily episodes each AM. He is admitted for re-titration of Tikosyn to prevent recurrent CM. Plan: #. PAF: admitted for Tikosyn titration on Eliquis for [id number] #. CKD: will renally dose medications once we have more current CrCl #. htn: will likely continue home meds once reconciled #. 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 Diet: regular #. LOS: inpatient status due to high risk med titration #. DVT ppx: early ambulation and Eliquis 05/19/18 13:03 Subjective: No complaints. Objective: Vital Signs (8 Hrs) Temp Pulse Resp BP Pulse Ox 05/19/18 12:15 97.6 F 75 18 170/101 H 97 Result Diagrams: 05/19/18 11:55 05/19/18 11:55 EKG: A-paced, QTc 425 - Physical Exam Constitutional: WDWN, no apparent distress Eyes: PERRL, anicteric sclera Ears, Nose, Mouth, Throat: moist mucous membranes Cardiovascular: regular rate and rhythm, systolic murmur Respiratory: clear to auscultate bilat, no crackles Gastrointestinal: normoactive bowel sounds Skin: no rashes, no abrasions Neurologic: AAOx3 Psychiatric: cooperative, interactive ICD10 Worksheet Patient Problems: Problems Problem Status Onset Atrial fibrillation Acute Chest pain Acute Elevated troponin Acute Fatigue Acute Hypoxia Acute Pacemaker Acute Pulmonary infiltrate present on computed tomography Acute Syncope Acute
[2018-05-19] MEDS: DOFETILIDE 0.125 MG CAP PO SCH ×2 (13:10→21:38)
[2018-05-19] MEDS: CARVEDILOL 6.25 MG TAB PO SCH ×2 (16:20→20:38)
--- NOTE | 2018-05-19 16:53 | PDMN ---
Medical Necessity Medical necessity: [facility] M505 AFib: 78 yo with PAF with PPM and Eliquis, moderate non-obstructive CAD by cardiac cath 09/11, resolved non-ischemic CHF (probably tachy-induced from his afib) with LVEF 10%>>40% CKD with serum creatinine 1.7, HTN, hyperlipidemia, resolving pulmonary fibrosis s/p PO Amiodarone in past, previous gastric ulcer and diverticulitis Last cardiac cath 09/11 showed moderate CAD; no PCI undertaken. Last echo from 02/19/18 showed EF 55, concentric LVH and mild AR/TR. He has seen Dr. Alfaro after noting more frequent AF with daily episodes each AM. He is admitted IP status for re-titration of Tikosyn to prevent recurrent CM.
[2018-05-19] MEDS ORDERED: MULTIVITAMINS 1 EACH TAB PO ONE (20:36)
[2018-05-19] MEDS: MULTIVITAMINS 1 EACH TAB PO SCH (20:38)
[2018-05-19] MEDS: APIXABAN 5 MG TAB PO SCH (20:38)
[2018-05-20 04:24] LABS: INR 1.11 (0.83-1.16); PROTIME(PATIENT) 14.5 SEC (12.0-15.0)
[2018-05-20] MEDS ORDERED: PROTOCOL MAGNESIUM 1 DOSE IV PRN (08:49)
[2018-05-20] MEDS ORDERED: MAGNESIUM SULF 1 GM/DEXTROSE 100 ML IV ONE (09:03)
[2018-05-20] MEDS: CHOLECALCIFEROL VIT D3 2,000 UNITS TAB/CAP PO SCH (09:54)
[2018-05-20] MEDS: MAGNESIUM OXIDE 400 MG TAB PO SCH (09:54)
[2018-05-20] MEDS: APIXABAN 5 MG TAB PO SCH ×2 (09:54→21:08)
[2018-05-20] MEDS: DOFETILIDE 0.125 MG CAP PO SCH ×2 (09:56→21:09)
[2018-05-20] MEDS: EPLERENONE 25 MG TAB PO SCH (09:56)
[2018-05-20] MEDS: PANTOPRAZOLE SODIUM 40 MG TAB PO SCH (09:56)
[2018-05-20] MEDS: RAMIPRIL 5 MG CAP PO SCH (09:56)
[2018-05-20] MEDS: CARVEDILOL 6.25 MG TAB PO SCH ×3 (09:57→21:05)
[2018-05-20] MEDS: ATORVASTATIN CALCIUM 40 MG TAB PO SCH (09:57)
[2018-05-20] MEDS ORDERED: ZOLPIDEM TARTRATE 5 MG TAB PO PRN (10:05)
[2018-05-20] MEDS ORDERED: CARVEDILOL 6.25 MG TAB PO ONE (10:05)
--- NOTE | 2018-05-20 12:28 | PDCARPN ---
Cardiology Progress Note Chief Complaint: PAF Assessment/Plan: Assessment: 78 y/o M with PAF with PPM and Eliquis, moderate non-obstructive CAD by cardiac cath 09/11, resolved non-ischemic CHF (probably tachy-induced from his afib) with LVEF 10% with subsequent normalization of EF, CKD with serum creatinine 1.5 , HTN, hyperlipidemia, resolving pulmonary fibrosis s/p PO Amiodarone in past, previous gastric ulcer and diverticulitis Last cardiac cath 09/11 showed moderate CAD; no PCI undertaken. Last echo from 02/19/18 showed EF 55, concentric LVH and mild AR/TR. He has seen Dr. Alfaro after noting more frequent AF with daily episodes each AM. He is admitted for re-titration of Tikosyn to prevent recurrent CM. Plan: #. PAF: admitted for Tikosyn titration on Eliquis for [id number] 4 started Tikosyn 125 mcg BID with CrCl of 40 #. CKD: Cr at typical baseline #. htn: BPs are elevated he reports typically better control at home given extra dose of Carvedilol #. 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 Diet: regular #. LOS: inpatient status due to high risk med titration #. DVT ppx: early ambulation and Eliquis 05/20/18 12:25 Subjective: Tolerating meds. Reviewed/Discussed With: other (Dr. Alfaro) Objective: Vital Signs (8 Hrs) Temp Pulse Resp BP Pulse Ox 05/20/18 11:09 97.9 F 83 18 159/94 H 94 05/20/18 07:25 97.8 F 70 16 164/103 H 94 Intake/Output (24 Hrs) 05/19/18 05/20/18 05/21/18 05:59 05:59 05:59 Intake Total 900 240 Output Total 1300 325 Balance -400 -85 Intake: Oral (ml) 900 240 Output: Urine (ml) 1300 325 Urinal 1300 325 Other: Weight 67.993 kg Number of Voids Urinal 1 1 Result Diagrams: 05/19/18 11:55 05/20/18 03:34 EKG: A paced with no significant prolongation of QTc Telemetry: reviewed - Physical Exam Constitutional: healthy appearing, no apparent distress Eyes: PERRL Ears, Nose, Mouth, Throat: moist mucous membranes Cardiovascular: regular rate and rhythm Respiratory: clear to auscultate bilat, no crackles Neurologic: AAOx3 Psychiatric: cooperative, interactive ICD10 Worksheet Patient Problems: Problems Problem Status Onset Atrial fibrillation Acute Chest pain Acute Elevated troponin Acute Fatigue Acute Hypoxia Acute Pacemaker Acute Pulmonary infiltrate present on computed tomography Acute Syncope Acute
--- NOTE | 2018-05-20 13:39 | ASMTCMCOM ---
CM Note CM Note Notes: PCM reviewed pt's chart for d/c planning. Pt is a 78 y/o male here due to Tikosyn titration. Pt lives with his , Aydee, /[phone]. No OT/PT evals ordered. No C/M d/c needs identified. CM available if needs change. D/C Plan: Anticipate independent. Date Signed: 05/20/2018 01:38 PM Electronically Signed By:Dania Chaudhry
--- NOTE | 2018-05-20 17:46 | CPEKG ---
Test Reason : OPEN Blood Pressure : / mmHG Vent. Rate : 070 BPM Atrial Rate : 070 BPM P-R Int : 195 ms QRS Dur : 083 ms QT Int : 393 ms P-R-T Axes : -33 -08 034 degrees QTc Int : 425 ms Atrial-paced complexes Confirmed by Huseyin Alfaro ([id number]) on 05/20/2018 5:45:36 PM Referred By: Confirmed By:Huseyin Alfaro
--- NOTE | 2018-05-20 17:47 | CPEKG ---
Test Reason : OPEN Blood Pressure : / mmHG Vent. Rate : 070 BPM Atrial Rate : 070 BPM P-R Int : 207 ms QRS Dur : 088 ms QT Int : 413 ms P-R-T Axes : -53 -09 026 degrees QTc Int : 446 ms Atrial-paced complexes Confirmed by Huseyin Alfaro ([id number]) on 05/20/2018 5:47:35 PM Referred By: Confirmed By:Huseyin Alfaro
--- NOTE | 2018-05-20 17:47 | CPEKG ---
Test Reason : OPEN Blood Pressure : / mmHG Vent. Rate : 070 BPM Atrial Rate : 070 BPM P-R Int : 197 ms QRS Dur : 085 ms QT Int : 401 ms P-R-T Axes : -22 -12 040 degrees QTc Int : 433 ms Sinus rhythm Inferior infarct, old Confirmed by Huseyin Alfaro ([id number]) on 05/20/2018 5:47:01 PM Referred By: Confirmed By:Huseyin Alfaro
--- NOTE | 2018-05-20 17:50 | CPEKG ---
Test Reason : OPEN Blood Pressure : / mmHG Vent. Rate : 077 BPM Atrial Rate : 077 BPM P-R Int : 203 ms QRS Dur : 084 ms QT Int : 390 ms P-R-T Axes : 007 -19 039 degrees QTc Int : 442 ms Sinus rhythm LVH by voltage Inferior infarct, old Confirmed by Huseyin Alfaro ([id number]) on 05/20/2018 5:50:15 PM Referred By: Confirmed By:Huseyin Alfaro
[2018-05-21] MEDS ORDERED: DOFETILIDE 0.125 MG CAP PO SCH
[2018-05-21] MEDS: APIXABAN 5 MG TAB PO SCH (08:52)
[2018-05-21] MEDS: EPLERENONE 25 MG TAB PO SCH (08:52)
[2018-05-21] MEDS: MULTIVITAMINS 1 EACH TAB PO SCH (08:52)
[2018-05-21] MEDS: CARVEDILOL 6.25 MG TAB PO SCH (08:52)
[2018-05-21] MEDS: CHOLECALCIFEROL VIT D3 2,000 UNITS TAB/CAP PO SCH (08:52)
[2018-05-21] MEDS: ATORVASTATIN CALCIUM 40 MG TAB PO SCH (08:52)
[2018-05-21] MEDS: DOFETILIDE 0.125 MG CAP PO SCH (08:52)
[2018-05-21] MEDS: PANTOPRAZOLE SODIUM 40 MG TAB PO SCH (08:53)
[2018-05-21] MEDS: RAMIPRIL 5 MG CAP PO SCH (08:53)
[2018-05-21] MEDS: MAGNESIUM OXIDE 400 MG TAB PO SCH (08:53)
[2018-05-21 08:54] VITALS: BP 130/89
--- NOTE | 2018-05-21 14:44 | ASDISCHSUM ---
Discharge Information Plan Status:Home with No Needs Medically Cleared to Leave:05/21/2018 Discharge Date:05/21/2018 12:10 PM CM D/C Disposition:Home, Routine, Self-Care ADT D/C Disposition:Home, Routine, Self-Care Projected Discharge Date:05/21/2018 12:10 PM Transportation at D/C: Discharge Delay Reason: Follow-Up Date:05/21/2018 12:10 PM Discharge Slot: Final Diagnosis: Placement Information Patient Contact Information Contact Name:HOWARD Relationship: Address:[address] [place] Alternate Phone: State/Zip Code:[place] [address] Email: Financial Information Financial Class:Medicare Primary Plan Desc:MEDICARE INPATIENT Primary Plan Number:[id number] Secondary Plan Desc:DAVID Secondary Plan Number:[id number] Assessment Information LACE LACE Length of stay for Answers: 1 day current admission Acuity / Level of Answers: Yes Care: Did the patient have an inpatient admission? Comorbidities - select Answers: Congestive heart failure all that apply Coronary Artery Disease # of Emergency department Answers: 1-2 visits in the last 6 months Score: 9 Date Signed: 05/21/2018 02:42 PM Electronically Signed By:Mer Gallegos RN [facility] CM Progress Note CM Note CM Note Notes: PCM reviewed pt's chart for d/c planning. Pt is a 78 y/o male here due to Tikosyn titration. Pt lives with his , Aydee, /[phone]. No OT/PT evals ordered. No C/M d/c needs identified. CM available if needs change. D/C Plan: Anticipate independent. Date Signed: 05/20/2018 01:38 PM Electronically Signed By:Dania Chaudhry Case Management Discharge Plan Note Case Management Discharge Discharge Order Complete? Answers: Yes Patient to Obtain Answers: via Family Medications Transportation Arranged Answers: Family/Friends Discharge Comments Notes: 05/21/2018 Case Management Note Pt discharged independent with follow up as directed. Date Signed: 05/21/2018 02:43 PM Electronically Signed By:Mer Gallegos RN Intervention Information Intervention Type:No Admission Order Date of Service:05/19/2018 02:33 PM Patient Type:Observation Staff Member:Cari Brown Hours: Discipline: Severity: Comment: Intervention Type:*Incorrect Registration Date of Service:05/19/2018 02:34 PM Patient Type:Observation Staff Member:Cari Brown Hours: Discipline: Severity: Comment:
--- NOTE | 2018-05-21 15:48 | GDS ---
DISCHARGE DIAGNOSES: 1. Paroxysmal atrial fibrillation status post Tikosyn titration this admission. 2. CHADS-VASc of 4 on Eliquis therapy. 3. Chronic kidney disease. 4. Hypertension. 5. 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 PROCEDURES: Serial EKGs. BRIEF HISTORY: Please see dictated office note for complete details. 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 Given his history of nonischemic cardiomyopathy relate d to tachycardia from his atrial fibrillation, he was admitted for Tikosyn titration due to his histo ry of renal insufficiency. His creatinine clearance was calculated and he was started on a dose of 1 25 mcg twice daily of Tikosyn. He has tolerated this throughout the hospital stay, his EKG has staye d within normal limits. He is being discharged to home with outpatient followup. He is to have an E KG in 1 week's time in our clinic. RESULTS PENDING: None. DIET: Per previous. DISCHARGE MEDICATIONS: Please see med reconciliation. His new medication is Tikosyn 125 mcg p.o. tw ice daily. He may continue his home amlodipine, eplerenone, atorvastatin, apixaban, ramipril, multiv itamin, carvedilol. Due to some hypomagnesemia, magnesium oxide was started this admission. FOLLOWUP INSTRUCTIONS: Follow up with Dr. Kruse in 1-2 weeks time. He will need an EKG at that offi ce visit. /[id number]/MODL
--- NOTE | 2018-05-22 06:11 | CPEKG ---
Test Reason : OPEN Blood Pressure : / mmHG Vent. Rate : 069 BPM Atrial Rate : 070 BPM P-R Int : 210 ms QRS Dur : 083 ms QT Int : 410 ms P-R-T Axes : -09 -11 039 degrees QTc Int : 440 ms Atrial-paced complexes Confirmed by Huseyin Alfaro ([id number]) on 05/22/2018 6:11:09 AM Referred By: Confirmed By:Huseyin Alfaro
--- NOTE | 2018-05-22 06:13 | CPEKG ---
Test Reason : OPEN Blood Pressure : / mmHG Vent. Rate : 070 BPM Atrial Rate : 070 BPM P-R Int : 201 ms QRS Dur : 085 ms QT Int : 410 ms P-R-T Axes : -18 -17 019 degrees QTc Int : 443 ms Sinus rhythm Probable left atrial enlargement Inferior infarct, old Confirmed by Huseyin Alfaro ([id number]) on 05/22/2018 6:12:54 AM Referred By: Confirmed By:Huseyin Alfaro
== END 2018-05-21 12:10 | disposition home or self-care (01) | DRG 310 ==
LOC: F2W 10:49 → OBSVTOIN 16:36
PROVIDERS: ADMIT Internal Medicine Cardiovascular Disease; ATTEND Internal Medicine Cardiovascular Disease
PROC: 3E033RZ Introduction of Antiarrhythmic into Peripheral Vein, Percutaneous Approach (ICD-10-PCS; principal; 2018-05-19)
DX: I48.0 Paroxysmal atrial fibrillation (principal); G72.9 Myopathy, unspecified; I12.9 Hypertensive chronic kidney disease with stage 1 through stage 4 chronic kidney disease, or unspecified chronic kidney disease; N18.9 Chronic kidney disease, unspecified; J84.10 Pulmonary fibrosis, unspecified; Z79.01 Long term (current) use of anticoagulants; Z95.0 Presence of cardiac pacemaker; E78.5 Hyperlipidemia, unspecified; Z87.19 Personal history of other diseases of the digestive system
CPT/HCPCS: J3475

== ENCOUNTER → 2018-06-02 | Outpatient (CLI) | payer OTHER | LOC: BHFA 13:00 | PROVIDERS: ATTEND Internal Medicine Cardiovascular Disease | DX: I48.91 Unspecified atrial fibrillation (principal); I50.9 Heart failure, unspecified; I25.10 Atherosclerotic heart disease of native coronary artery without angina pectoris; R42 Dizziness and giddiness ==

== ENCOUNTER → 2018-06-13 | Outpatient (CLI) | payer OTHER | LOC: BHFA 09:30 | PROVIDERS: ATTEND Internal Medicine Cardiovascular Disease | DX: I48.91 Unspecified atrial fibrillation (principal) ==

== ENCOUNTER → 2019-01-12 | Outpatient (CLI) | payer OTHER | LOC: GIMAGING 13:53 | PROVIDERS: ATTEND Family Medicine | DX: M54.6 Pain in thoracic spine (principal); Z91.81 History of falling | CPT/HCPCS: 72070-PO ==